=== PATIENT | female | born 1955 | race Caucasian/White ===

== ENCOUNTER → 2016-11-11 | Outpatient (CLI) | payer OTHER ==
[~2016-11-11] MED LIST: ALPR-411 PO; ASPI81TA28 PO; ATOR10TA82 PO; CARV6.252 PO; CLOP1TAB15 PO; DRGTP12 TD; FENO145T26 PO; FLUT1INH7 INH; HMLIS SQ; HYDR25TA4 PO; INSU1INJ33 SQ; IPRA1AER2 INH; LEVE500T13 PO; LISI-461 PO; NTRGSL/4 UT; OXGN; OXYC-164 PO; PANT40TA PO; TIZA2CAP PO; UMEC1INH INH; VNTHFA/IN INH; ZOLP10TA PO
--- NOTE | 2016-11-11 13:39 | DIAGNOSTIC IMAGING REPORT ---
PET/CT HISTORY: PULMONARY NODULE TECHNIQUE: PET/CT was performed from the base of the skull through the pelvis following the intravenous administration of 9.0 mCi of F18-FDG. Non-contrast CT imaging was performed over the same range without breath-hold for attenuation correction of PET images and anatomic correlation, but not for primary interpretation as it is not of standard diagnostic quality. CT DOSE: COMPARISON: Chest CT 11/11/2016. FINDINGS: HEAD AND NECK: There is no FDG-avid disease or significant lymphadenopathy in the imaged portions of the head and the neck. CHEST: There is a 2.5 x 2.1 cm lobulated nodule within the anterior segment of the left upper lobe demonstrating moderate FDG uptake with an SUV max of 5. There is a 1 cm groundglass nodule within the left lung apex and a 4 mm nodule within the left lung apex on image 63. These do not demonstrate abnormal FDG uptake. Left-sided pacemaker. No FDG avid or enlarged mediastinal or hilar lymph nodes. ABDOMEN/PELVIS: Below the diaphragm, tracer is distributed physiologically in the gastrointestinal and genitourinary tracts. There are few slightly prominent left obturator/external iliac lymph nodes which demonstrate mild FDG uptake with an SUV max of 2. These are borderline enlarged by CT criteria with the dominant lymph node measuring 1.8 x 0.7 cm. MUSCULOSKELETAL: There is no FDG-avid or destructive bone lesion. IMPRESSION: 1. A 2.5 x 2.1 cm FDG avid nodule within the left upper lobe. This is consistent with a primary bronchogenic malignancy. 2. A 1 cm groundglass nodule within the left upper lobe. This does not demonstrate abnormal FDG uptake but may be below the threshold for PET imaging. Regardless, the imaging appearance alone is highly suggestive of a malignancy. 3. A 4 mm pulmonary nodule within the left lung apex which is indeterminate. 4. A few slightly prominent left obturator/external iliac lymph nodes which demonstrate mild FDG uptake. These are nonspecific and could be reactive. These are unlikely to represent metastatic disease given the location. A 3-[address] follow up is recommended to ensure resolution. Electronically signed by: Bret Dixon M.D. 11/11/2016 1:37 PM Dictated Date/Time: 11/11/2016 1:22 PM
== END | disposition home or self-care (01) ==
LOC: C.PET 08:32
PROVIDERS: ATTEND Surgery
DX: R91.1 Solitary pulmonary nodule (principal)

== ENCOUNTER → 2016-11-11 | Outpatient (CLI) | payer OTHER ==
--- NOTE | 2016-11-11 13:25 | DIAGNOSTIC IMAGING REPORT ---
CT CHEST SUPERDIMENSIONAL WITHOUT CT DOSE: 622.94 mGy.cm CLINICAL HISTORY: Lung mass. TECHNIQUE: Axial images of the chest were obtained without IV contrast according to the superdimensional protocol. COMPARISON STUDY: Chest CT October 19, 2016 and PET/CT performed earlier today. FINDINGS: No enlarged axillary, mediastinal or hilar lymph nodes are present. A left subclavian pacemaker/AICD is in place. The heart is mildly enlarged. There is a trace pericardial effusion. Note is made of a lobulated 3.1 x 2 cm mass with endobronchial component which occludes the bronchus to the anterior segment of the left upper lobe. There is mild associated volume loss. In addition, there is a 1.2 cm groundglass opacity within left lung apex which is unchanged since prior exam of October 19, 2016. This is shown on image 30 of 276. There is an adjacent indeterminate 4 mm left upper lobe nodule shown image 30. No suspicious osseous lesions are present. Upper abdomen is unremarkable. IMPRESSION: 1. 3.1 x 2 cm irregular left upper lobe mass with endobronchial component which occludes the bronchus to the anterior segment of the left upper lobe. This is consistent with a neoplasm and could reflect a bronchogenic carcinoma or carcinoid. 2. 1.2 cm groundglass opacity within left lung apex. While indeterminate, this is suspicious for a low-grade neoplasm within the adenocarcinoma spectrum. 3. Indeterminate 4 mm left apical nodule. 4. No thoracic lymphadenopathy. Electronically signed by: Sb Cunningham M.D. 11/11/2016 1:23 PM Dictated Date/Time: 11/11/2016 12:11 PM
== END | disposition home or self-care (01) ==
LOC: C.CTS 11:13
PROVIDERS: ATTEND Surgery
DX: R91.8 Other nonspecific abnormal finding of lung field (principal)

== ENCOUNTER 2016-12-28 08:10 | Day surgery (SDC) | payer OTHER ==
[2016-11-03 10:52] VITALS: BMI 38.0
[~2016-12-28] VITALS: Ht 162.6 cm; Wt 100.0 kg
[~2016-12-28 08:10] MED LIST changes: +CEFAZOLIN 2000 MG/60 ML D5W IV SCH; -FENO145T26 PO; -INSU1INJ33 SQ; +LACTATED RINGER'S 1000ML 1,000 ML IV SCH; -NTRGSL/4 UT; -OXGN; -TIZA2CAP PO; -UMEC1INH INH; -ZOLP10TA PO
[2016-12-28] MEDS ORDERED: FENO145T26 PO (08:48)
[2016-12-28] MEDS ORDERED: NTRGSL/4 UT (08:49)
[2016-12-28] MEDS ORDERED: TIZA2CAP PO (08:50)
[2016-12-28] MEDS ORDERED: OXGN (08:50)
[2016-12-28] MEDS ORDERED: ZOLP10TA PO (08:51)
[2016-12-28] MEDS ORDERED: UMEC1INH INH (08:56)
[2016-12-28 08:59] VITALS: BP 175/84; PULSE 83; TEMP 36.5; O2SAT 98; Ht 162.6 cm; Wt 100.0 kg
[2016-12-28] MEDS ORDERED: PROPOFOL IV EMULSION 10 MG/ML 20 ML VIAL IV ONE (09:33)
[2016-12-28] MEDS ORDERED: SUCCINYLCHOLINE CHLORIDE 20 MG/ML 10 ML VIAL IV ONE (09:33)
[2016-12-28] MEDS ORDERED: FENTANYL CITRATE INJ 50 MCG/1 ML 2 ML VIAL ONE ×2 (09:33→10:48)
[2016-12-28] MEDS ORDERED: ROCURONIUM BROMIDE 10 MG/ML 5 ML VIAL ONE (09:33)
[2016-12-28] MEDS ORDERED: MIDAZOLAM HCL 1 MG/ML 2ML VIAL ONE (09:33)
[2016-12-28] MEDS ORDERED: LIDOCAINE HCL 2% 2 ML VIAL (20MG/ML) ONE (09:33)
[2016-12-28] MEDS ORDERED: ATROPINE SULFATE 0.1 MG/ML 5ML SYR IV PRN (11:15)
[2016-12-28] MEDS ORDERED: EpHEDrine SULFATE INJ 50 MG/ML AMP IV PRN (11:15)
--- NOTE | 2016-12-28 12:22 | History and Physical ---
History & Physical Date Dec 28, 2016. Chief Complaint A lump in my lung. History of Present Illness The patient is a 61 year old female who was found to have an asymptomatic hypermetabolic mass in her left upper lobe and a smaller ground glass opacity in the left upper lobe. Her lung function is surprising preserved. PET scan shows only the HAYDEE mass is hypermetabolic. She is here for a staging EBUS and aa Electromagnetic Navigational Bronchoscopy with biopsy. Additional History Hepatic Disease: No Endocrine Disorder: Yes Kidney Disease: No Hypertension: Yes Heart Disease: Probable, but has been cleared. Bleeding Tendencies: No Infectious Diseases: No Allergies Coded Allergies: Latex1 -Allergic Contact Dermititis (Verified Allergy, Mild, RASH, PRURITIS, 12/28/16) Morphine (Verified Allergy, Mild, N/V, 12/28/16) Uncoded Allergies: ADHESIVE TAPE (Allergy, Mild, RASH, 11/03/16) Home Medications Scheduled Aspirin (Aspirin Ec), 81 MG PO QAM Atorvastatin (Lipitor), 10 MG PO QAM Carvedilol (Coreg), 6.25 MG PO QAM Clopidogrel (Plavix), 75 MG PO QAM Fenofibrate (Tricor ), 1 TAB PO DAILY Fluticasone Furoate-Vilanterol (Breo Ellipta 200-25 Mcg/INH), 1 PUFF INH DAILY Home O2 Therapy (Oxygen), 2 LITERS NA HS Hydrochlorothiazide (Hctz), 25 MG PO QAM Insulin Human Lispro (Humalog Kwikpen), 0 SQ UD Levetiracetam (Keppra), 1 TAB PO BID Lisinopril (Zestril), 10 MG PO QAM Nitroglycerin (Nitrostat), 0.4 MG UT PRN Pantoprazole (Protonix), 40 MG PO QAM Zolpidem Tartrate (Ambien), 10 MG PO HS Scheduled PRN Albuterol Hfa (Ventolin Hfa), 2 PUFFS INH Q4H PRN for Shortness of Breath Alprazolam (Xanax), 0.5 MG PO BID PRN for Anxiety/Agitation Fentanyl (Fentanyl), 1 PATCH TD Q3D PRN for Pain Ipratropium-Albuterol (Combivent Respimat), 2 PUFFS INH QID PRN for Shortness of Breath Oxycodone Hcl (Oxycodone Hcl), 1 TAB PO QID PRN for Pain Umeclidinium Rueter (Incruse Ellipta), 1 PUFF INH prn PRN for Wheezing Physical Examination Skin: warm/dry, no rash Eyes: normal inspection, EOMI, sclerae normal ENT: + pertinent finding (Edentulous.) Head: normocephalic Neck: supple, no adenopathy, trachea midline Respiratory/Chest: no respiratory distress, + pertinent finding (No wheezing, but has decreased breath sounds.) Cardiovascular: regular rate, rhythm, no edema, no murmur Abdomen / GI: + pertinent finding (Obese.) Back: normal inspection Extremities: normal inspection, normal range of motion Neurologic/Psych: no motor/sensory deficits, alert, normal reflexes, oriented x 3 Diagnosis Left upper lobe mass X 2 in a smoker. Plan of Treatment Staging EBUS and ENB.
--- NOTE | 2016-12-28 14:58 | DIAGNOSTIC IMAGING REPORT ---
INTRAOPERATIVE RADIOGRAPHS CLINICAL HISTORY: Navigational bronchoscopy. FINDINGS: 2 spot fluoroscopic views of the left lung from a navigational bronchoscopy procedure are presented. The bronchoscope is identified on both images. A cardiac pacemaker is noted. IMPRESSION: Intraoperative images of the left chest from navigational bronchoscopy procedure. See operative report for detailed findings. Electronically signed by: Ricky Parekh M.D. 12/28/2016 2:56 PM Dictated Date/Time: 12/28/2016 2:55 PM
[2016-12-28] MEDS: FENTANYL CITRATE INJ 50 MCG/1 ML 2 ML VIAL IV PRN ×4 (15:10→15:25)
--- NOTE | 2016-12-28 15:14 | DIAGNOSTIC IMAGING REPORT ---
CHEST ONE VIEW PORTABLE CLINICAL HISTORY: s/p EBU / ENB COMPARISON STUDY: No previous studies for comparison. FINDINGS: No evidence pneumothorax. Parenchymal density left midlung similar. Permanent unipolar cardiac pacemaker/defibrillator IMPRESSION: No evidence pneumothorax post procedure Electronically signed by: Zain Webb M.D. 12/28/2016 3:12 PM Dictated Date/Time: 12/28/2016 3:11 PM
--- NOTE | 2016-12-28 15:47 | Anesthesiology Progress Note ---
Anesthesia Post Op Note Date & Time Dec 28, 2016 at 15:47 Vital Signs Pain Intensity: 2 Vital Signs Past 12 Hours Date Time Temp Pulse Resp B/P (MAP) Pulse Ox O2 Delivery O2 Flow Rate FiO2 12/28/16 15:42 89 15 98 12/28/16 15:42 88 15 12/28/16 15:41 144/77 12/28/16 15:37 89 23 12/28/16 15:37 88 23 97 12/28/16 15:36 147/86 12/28/16 15:32 91 19 96 12/28/16 15:32 92 19 12/28/16 15:31 146/80 12/28/16 15:27 92 17 96 12/28/16 15:27 92 17 12/28/16 15:26 159/86 12/28/16 15:22 94 16 96 12/28/16 15:22 94 16 12/28/16 15:21 162/99 12/28/16 15:17 92 14 12/28/16 15:17 91 14 100 12/28/16 15:16 172/68 12/28/16 15:12 93 17 100 12/28/16 15:12 93 17 12/28/16 15:11 167/78 12/28/16 15:10 92 14 100 12/28/16 15:10 92 14 12/28/16 15:06 158/89 12/28/16 15:05 87 21 12/28/16 15:05 87 21 100 12/28/16 15:01 152/78 12/28/16 15:00 89 17 99 12/28/16 15:00 88 17 12/28/16 14:59 88 23 99 12/28/16 14:59 88 23 12/28/16 14:56 139/86 12/28/16 14:54 90 25 12/28/16 14:54 90 25 97 12/28/16 14:51 144/76 12/28/16 14:49 98 23 12/28/16 14:49 98 23 97 12/28/16 14:46 122/75 12/28/16 14:44 94 21 12/28/16 14:44 36.3 94 16 151/77 93 Mask 10 12/28/16 14:44 94 21 151/77 94 12/28/16 08:59 36.5 83 20 175/84 (114) 98 Room Air Notes Mental Status: alert / awake / arousable, participated in evaluation Pt Amnestic to Procedure: Yes Nausea / Vomiting: adequately controlled Pain: adequately controlled Airway Patency, RR, SpO2: stable & adequate BP & HR: stable & adequate Hydration State: stable & adequate Anesthetic Complications: no major complications apparent
--- NOTE | 2016-12-28 16:08 | Discharge Instructions ---
Discharge Instructions Date of Service Dec 28, 2016. Visit Reason for Visit: Lung Mass, Iddm Discharge Discharge Diagnosis / Problem: Same Discharge Goals Goal(s): Learn about illness (I will see you next week to go over your illness. ) Activity Recommendations Activity Limitations: resume your previous activity Exercise/Sports Limitations: gradually increase as tolerated Anesthesia . Post Anesthesia Instructions: If you have had General Anesthesia or IV Sedation: * Do not drive today. * Resume driving when surgeon permits. * Do not make important decisions or sign legal documents today. * Call surgeon for: 1. Temperature elevations greater than 101 degrees F. 2. Uncontrollable pain. 3. Excessive bleeding. 4. Persistent nausea and vomiting. 5. Medication intolerance (nausea, vomiting or rash). * For nausea and vomiting use only clear liquids such as: tea, soda, bouillon until nausea subsides, then gradually increase diet as tolerated. * If you have any concerns or questions, call your surgeon's office. If physician is unavailable and it is an emergency, call 911 or go to the nearest emergency room. . Diet Recommendations Recommended Home Diet: resume previous diet Procedures Procedures Performed: Endobronchial Ultrasound; Navigational Bronchoscopy with Biopsies Pending Studies Studies pending at discharge: yes List of pending studies: Cytology and histology of lymph nodes and lung masses. Medical Emergencies . Who to Call and When: Medical Emergencies: If at any time you feel your situation is an emergency, please call 911 immediately. . Non-Emergent Contact Non-Emergency issues call your: Surgeon (Call the [facility] at [phone] Smith for any problems.) . . "Provider Documentation" section prepared by Brian Smith. .
[2016-12-28 16:10] VITALS: BP 169/77; PULSE 86; TEMP 36.5; O2SAT 98
[2016-12-28 16:40] VITALS: BP 140/77; PULSE 90; O2SAT 95
[2016-12-28 17:10] VITALS: BP 184/76; PULSE 95; TEMP 36.9; O2SAT 92
--- NOTE | 2016-12-28 18:53 | OPERATIVE REPORT ---
DATE OF OPERATION: 12/28/2016 PREOPERATIVE DIAGNOSIS: 1. Hypermetabolic mass, left upper lobe. 2. A second mass, left upper lobe. 3. History of cigarette smoking. POSTOPERATIVE DIAGNOSIS: Same. PROCEDURE: 1. Endobronchial ultrasound with biopsy for lymph node staging. 2. Electromagnetic navigational bronchoscopy washings of the superior lesion, which was a ground-glass lesion and then biopsies with brushes and needle and washings of the more inferior left upper lobe lesion. She tolerated it well. PROCEDURE: The patient was brought to the operating room and placed in supine position. General anesthesia was induced and endotracheal intubation was performed with a large endotracheal tube. The patient was given prophylactic antibiotics. After appropriate timeout had been called, the endobronchial ultrasound bronchoscope was placed. I did not see any endobronchial lesions in any of the airways going down to the smaller bronchi. I then started on the right side and biopsied the right level 11, right level 10, right level 4 nodes and the level 7 from the right and then the level 7 from the left and then did the left level 4 node, left level 10 nodes, left level 11 nodes. I biopsied these multiple times. There was minor bleeding from these. I then removed the endoscopic ultrasound and I scoped and placed a fiberoptic bronchoscope. I then was able to clean the airways much better. After registering the airways, I then placed the navigational probe up into the left upper lobe; however, I could not get to the most superior ground-glass opacity. I tried several times, but I did not think we could get any tissues with the brush or needle so I simply did washings. Decision was then turned towards the more solid, more proximal and inferior mass. Again, I did not have a good shot at this even though I entered through 7 different directions. I did do a needle biopsy as well as brushes. I did not do a forceps biopsy. I was not happy with what I saw on the radial ultrasound probe. There were some atypical cells noted on the needle. I did washings of this area too. There was really no bleeding when I finished. I slowly withdrew the fiberoptic bronchoscope. She tolerated it well. I attest to the content of the Intraoperative Record and any orders documented therein. Any exception s are noted below.
[2017-01-12] MEDS ORDERED: INSU1INJ33 SQ (10:17)
== END 2016-12-28 17:15 | disposition home or self-care (01) ==
LOC: C.ACU 08:10
PROVIDERS: ATTEND Surgery
DX: R91.8 Other nonspecific abnormal finding of lung field (principal); I12.9 Hypertensive chronic kidney disease with stage 1 through stage 4 chronic kidney disease, or unspecified chronic kidney disease; I25.2 Old myocardial infarction; N18.9 Chronic kidney disease, unspecified; J45.909 Unspecified asthma, uncomplicated; J44.9 Chronic obstructive pulmonary disease, unspecified; M19.90 Unspecified osteoarthritis, unspecified site; F17.200 Nicotine dependence, unspecified, uncomplicated; Z68.38 Body mass index [BMI] 38.0-38.9, adult; Z91.040 Latex allergy status; Z88.5 Allergy status to narcotic agent; Z90.49 Acquired absence of other specified parts of digestive tract; Z85.71 Personal history of Hodgkin lymphoma; Z79.4 Long term (current) use of insulin; Z79.02 Long term (current) use of antithrombotics/antiplatelets; E11.9 Type 2 diabetes mellitus without complications

== ENCOUNTER → 2017-01-04 | Outpatient (CLI) | payer OTHER ==
[~2017-01-04] MED LIST changes: -ATOR10TA82 PO; +ATOR10TA88 PO; -CEFAZOLIN 2000 MG/60 ML D5W IV SCH; +FENO145T26 PO; +INSU1INJ33 SQ; -LACTATED RINGER'S 1000ML 1,000 ML IV SCH; +NTRGSL/4 UT; +OXGN; +UMEC1INH INH; +ZOLP10TA PO
--- NOTE | 2017-01-04 09:22 | DIAGNOSTIC IMAGING REPORT ---
CHEST 2 VIEWS ROUTINE CLINICAL HISTORY: R91.8 Lung massR91.1 Lung [id number] COMPARISON STUDY: 12/28/2016 FINDINGS: The cardiac and mediastinal contours remain stable. There is a left-sided pacer/defibrillator present. There are resolving left midlung zone opacities. The right lung is clear. There are no pleural effusions. There is no failure.[ The patient's 3 cm left upper lobe mass is difficult to visualize on conventional radiographic imaging IMPRESSION: Resolving left midlung zone airspace opacities. Electronically signed by: Arian White M.D. 01/04/2017 9:20 AM Dictated Date/Time: 01/04/2017 9:18 AM
== END | disposition home or self-care (01) ==
LOC: C.RAD 08:54
PROVIDERS: ATTEND Surgery
DX: R91.8 Other nonspecific abnormal finding of lung field (principal); R91.1 Solitary pulmonary nodule

== ENCOUNTER 2017-01-20 05:23 | Inpatient (IN) | payer OTHER ==
[2017-01-12 10:17] VITALS: BMI 39.0
[2017-01-20] VITALS (10 sets, daily range): BP systolic 85–166; BP diastolic 42–93; PULSE 61–84; TEMP 36.4–37; O2SAT 98–100; Ht 162.6 cm; Wt 104.0 kg
[~2017-01-20] VITALS: Ht 162.6 cm; Wt 104.0 kg
[2017-01-20] MEDS ORDERED: LACTATED RINGER'S 1000ML 1,000 ML IV SCH (06:00)
[2017-01-20] MEDS ORDERED: SODIUM CHLORIDE 0.9% PF 50 ML VIAL ONE ×2 (06:59→12:43)
[2017-01-20] MEDS ORDERED: BUPIVACAINE LIPOSOME 1/3% 266 MG/20 ML VIAL INFIL ONE ×2 (07:00→12:43)
--- NOTE | 2017-01-20 07:01 | History & Physical Bridge Note ---
H&P Re-Evaluation Bridge Note: I have examined the patient, reviewed the History & Physical and in the interval since the performance of the History & Physical I have noted the following changes of clinical significance: No changes noted
[2017-01-20] MEDS ORDERED: PROPOFOL IV EMULSION 10 MG/ML 20 ML VIAL IV ONE (07:09)
[2017-01-20] MEDS ORDERED: LIDOCAINE HCL 2% 2 ML VIAL (20MG/ML) ONE (07:09)
[2017-01-20] MEDS ORDERED: FENTANYL CITRATE INJ 50 MCG/1 ML 2 ML VIAL ONE ×5 (07:09→15:54)
[2017-01-20] MEDS ORDERED: MIDAZOLAM HCL 1 MG/ML 2ML VIAL ONE (07:09)
[2017-01-20] MEDS ORDERED: CLINDAMYCIN PHOS 150 MG/ML 2 ML VIAL ONE (08:39)
[2017-01-20] MEDS ORDERED: PROMETHAZINE HCL INJ 6.25 MG in SODIUM CHLORIDE 0.9% 50ML 50 ML IV PRN (08:45)
[2017-01-20] MEDS ORDERED: ATROPINE SULFATE 0.1 MG/ML 5ML SYR IV PRN (08:45)
[2017-01-20] MEDS ORDERED: FENTANYL CITRATE INJ 50 MCG/1 ML 2 ML VIAL IV PRN (08:45)
[2017-01-20] MEDS ORDERED: EpHEDrine SULFATE INJ 50 MG/ML AMP IV PRN (08:45)
[2017-01-20] MEDS ORDERED: HYDROmorphone INJ 1 MG/ML SYR IV PRN (08:45)
[2017-01-20] MEDS ORDERED: ONDANSETRON INJ 2 MG/ML 2 ML VIAL IV PRN ×2 (08:45→15:15)
[2017-01-20] MEDS ORDERED: ONDANSETRON INJ 2 MG/ML 2 ML VIAL ONE (10:37)
[2017-01-20] MEDS ORDERED: PHENYLEPHRINE HCL INJ 10 MG/ML VIAL ONE ×2 (10:37→11:17)
[2017-01-20] MEDS ORDERED: ROCURONIUM BROMIDE 10 MG/ML 5 ML VIAL ONE ×2 (10:37→11:22)
[2017-01-20 13:35] LABS: HEMATOCRIT 35.7 % (37-47)
[2017-01-20] MEDS ORDERED: PROGEL PLEURAL AIR LEAK SEALANT 4ML TOP ONE (14:41)
[2017-01-20] MEDS ORDERED: GLYCOPYRROLATE INJ 0.2 MG/ML VIAL ONE (14:47)
[2017-01-20] MEDS ORDERED: NEOSTIGMINE METHYLSULFATE 5 MG/5 ML SYR ONE (14:47)
[2017-01-20] MEDS ORDERED: NITROGLYCERIN 0.4 MG SL PER TAB CHARGE UT PRN (15:15)
[2017-01-20] MEDS ORDERED: ALPRAZOLAM 0.5 MG TAB PO PRN (15:15)
--- NOTE | 2017-01-20 15:37 | DIAGNOSTIC IMAGING REPORT ---
CHEST ONE VIEW PORTABLE CLINICAL HISTORY: INCORRECT INSTRUMENT COUNT OR RM 11 COMPARISON STUDY: No previous studies for comparison. FINDINGS: A single right lateral decubitus view is provided for interpretation. There is a left-sided pneumothorax with a pleural separation of 2 cm.[ There is a left chest tube present. There is a left subclavian pacer/defibrillator present. No metallic instruments are visualized in the field. There is a triangular-shaped structure projected over the left lower chest. This is of uncertain etiology and needs to be correlated with overlying hardware. IMPRESSION: 1. No metallic instruments are visualized within the [id number] 2. Postsurgical changes involving the left hemithorax with a left-sided chest tube and 2 cm left-sided pneumothorax Electronically signed by: Arian White M.D. 01/20/2017 3:35 PM Dictated Date/Time: 01/20/2017 3:31 PM
--- NOTE | 2017-01-20 16:07 | DIAGNOSTIC IMAGING REPORT ---
CHEST ONE VIEW PORTABLE CLINICAL HISTORY: Left upper lobe resection COMPARISON STUDY: Intraoperative radiograph performed the same day FINDINGS: The heart is borderline enlarged. There are low lung volumes. There is a left-sided pacer/defibrillator present. There is a left-sided chest tube. There is blunting of the left lateral costophrenic angle. No significant pneumothorax is visualized. There is subsegmental atelectatic changes at the right lung base.[ IMPRESSION: Postsurgical change. No evidence of significant pneumothorax Electronically signed by: Arian White M.D. 01/20/2017 4:06 PM Dictated Date/Time: 01/20/2017 4:05 PM
--- NOTE | 2017-01-20 16:25 | [facility] Operative Report ---
Operative Report Date of Service Jan 20, 2017. Operative Report Operative report: Preoperative diagnosis: 2 masses left upper lobe. Posterior diagnosis: Squamous cell carcinoma more proximal lung lesion. Procedure: #1 robotic-assisted dissection the left upper lobe hilum #2 conversion to mini thoracotomy to complete left upper lobectomy and mediastinal lymph node dissection. Surgeon:Sarah Suazo. surgeon: Domo RAMOS Procedure: This 61-year-old female with a history of lymphoma also suffers from cardiomyopathy. She was found to have a mass in her medial left upper lobe and also a groundglass opacity in the apex of her left upper lobe. I performed an endobronchial ultrasound and biopsied multiple lymph node stations they were all negative. We did not have a diagnosis however the medial mass was hypermetabolic and certainly appeared to be a malignancy. After long discussion with the patient and her family we elected to proceed with resection. This was not an area where we could do a wedge resection. On 01/20/2017 the patient for Travis and underwent uncomplicated insertion of a double lumen tube. She was turned in the right lateral decubitus position. After all monitoring lines and catheters been placed and prophylactic antibiotics given, a timeout was called. She was then prepped and draped in the usual sterile fashion. 5 separate incisions were made at about the eighth interspace to accommodate a 5 mm port 38 mm ports and two 12 mm ports. The robot was undocked. It could be seen the patient did have much in the way of of adhesions. Unfortunately, she had no fissures at all. We retracted the lung anteriorly and I took down level X nodes after dissecting out the medial mediastinum. Came down upon the main pulmonary artery. She did have some adhesions between the pericardium and the medial aspect of the right upper and lower lobe. These were taken down it was difficult to dissect out the vein however we were able to do this identified the lingual vein and the superior pulmonary vein. I completed the mediastinal dissection around the upper hilum down to the medial aspect and dissected out multiple lymph nodes. Then came down to down the inferior pulmonary ligament took out a level VIII and 9 nodes. There are multiple level XI nodes removed. Patient was then turned posteriorly and a large superior branch was taken pulmonary artery with Endo GI stapler. It bifurcated soon after this. We then dissected out more medially and the apical anterior branch came out. It was difficult to dissect out the fissure as it was incomplete. I then went around medially and fired an Endo JEFF stapler across the superior pulmonary vein. I then fired an Endo JEFF stapler across the anterior fissure and then along the posterior fissure for a short distance on each fissure. However, it was difficult to dissect out the pulmonary artery. I then dissected out the bronchus to the upper lobe and fired stapler however we were fairly distal. Came upon the lingual artery and I inserted lingular artery and I fired an Endo JEFF stapler across this. This completed the fissure anteriorly however at this point, we did not progressed as quickly as I would've liked. The fissures were also very difficult despite inflating the lung. For this reason I elected to open the chest and finishes case open. I made and incision in about the fifth interspace anterior latissimus dorsi about 10 cm. A retractor was placed. I was then able to dissect out the remainder the fissure posteriorly and fired an Endo JEFF stapler across this to finally complete it. Identified the branch going to the superior segment of the lower lobe and care was taken to avoid injury to this. Attention was then turned towards the medial aspect of the remaining fissure and I completed this by firing another stapler and delivered the lobe off the table. Frozen section showed this to indeed be a squamous cell carcinoma in the medial lesion. I did discuss the factor that there was a groundglass opacity in the apex with Dr. Costa. Frozen section was required on this. There was some dysplasia although no dylan carcinoma of the bronchus. This reason I dissected this out further and took off another segment is as I had left this fairly long. I inked this margins and gave it to Dr. Costa and this was negative for carcinoma. Then used 266 mg of X Singleton reconstituted in 60 mL of normal saline to do a intercostal block intrathoracic leak from the second to 11th rib. Also to be noted that I undocked and removed all of the arms of the robot when I opened the chest. Irrigated out the chest really there was no air leak. The lung inflated nicely. A 24 Azeri chest tube was directed towards the apex. This was brought out through the anterior trocar incision and was sutured in place with a heavy silk suture. The muscle layers of all incisions were closed with 0 Vicryl. 2 pericostals 0 Maxon sutures used to reapproximate the ribs the anterior thoracotomy incision. 4 Monocryl was used to close all the incisions. She has multiple comorbidities was extubated in the room and transported to the postanesthesia care unit in stable condition. I attest to the content of the Intraoperative Record and any orders documented therein. Any exceptions are noted below.
--- NOTE | 2017-01-20 16:45 | Anesthesiology Progress Note ---
Anesthesia Post Op Note Date & Time Jan 20, 2017 at 16:42 Vital Signs Pain Intensity: 0 Vital Signs Past 12 Hours Date Time Temp Pulse Resp B/P (MAP) Pulse Ox O2 Delivery O2 Flow Rate FiO2 01/20/17 16:30 65 16 90/59 100 CPAP 88/43 01/20/17 16:20 66 16 91/56 100 CPAP 88/43 01/20/17 16:10 72 16 93/59 100 CPAP 68/35 01/20/17 16:00 70 16 104/62 100 CPAP 71/41 01/20/17 15:53 71 98 50.0 50 01/20/17 15:50 74 16 141/85 100 CPAP 108/55 01/20/17 15:42 36.0 84 16 139/64 100 CPAP 01/20/17 05:55 36.5 84 20 166/93 100 Room Air Notes Mental Status: alert / awake / arousable, participated in evaluation Pt Amnestic to Procedure: Yes Nausea / Vomiting: adequately controlled Pain: adequately controlled Airway Patency, RR, SpO2: stable & adequate BP & HR: stable & adequate Hydration State: stable & adequate Anesthetic Complications: no major complications apparent Pt will go to ICU on bipap. Health Science Specialist consulted and aware of patient's condition. VSS not on any pressor.
[2017-01-20] MEDS ORDERED: GLUCOSE 10 TABS/TUBE PO PRN (17:15)
[2017-01-20] MEDS ORDERED: GLUCOSE 40% GEL 15 GM TUBE PO PRN (17:15)
[2017-01-20] MEDS ORDERED: GLUCAGON FOR INJ 1 MG VIAL SQ PRN (17:15)
[2017-01-20] MEDS ORDERED: DEXTROSE 50% 50 ML SYR IV PRN (17:15)
[2017-01-20] MEDS: KETOROLAC TROMETHAMINE 15 MG/ML VIAL IV. SCH (17:54)
[2017-01-20] MEDS: SODIUM CHLORIDE 0.9% 1000ML 1,000 ML IV SCH (17:54)
[2017-01-20] MEDS: ACETAMINOPHEN IV 1,000 MG in EMPTY BAG 0 ML IV SCH (17:54)
[2017-01-20 17:58] LABS: HEMATOCRIT 35.5 % (37-47); MEAN CELL VOLUME 89.4 fL (80-100); MEAN CORPUSCULAR HGB CONC 32.4 g/dl (32-36); MEAN PLATELET VOLUME 10.1 fL (7.4-10.4); PLATELET COUNT 306 K/uL (130-400); RED BLOOD COUNT 3.97 M/uL (4.2-5.4); WHITE BLOOD COUNT 18.09 K/uL (4.8-10.8)
[2017-01-20] MEDS: CLINDAMYCIN IV 900 MG in DEXTROSE 5% 100ML 100 ML IV SCH (18:04)
--- NOTE | 2017-01-20 18:06 | Critical Care Consultation ---
Critical Care Consultation Date of Consultation: Jan 20, 2017. Attending Physician: Brian Smith MD Reason for Consultation: High risk post op course, multiple comorbidities, COPD History of Present Illness 61F with a PMHx of CAD s/p occluded stent, DM2, COPD presents status post open thoracotomy for resection of her left upper lobe and lymph node dissection. The patient presented to the ICU at approximately 17:00 on 01/20/2017. She was wearing a CPAP and was moderately sedated and unable to answer most questions. By the end of the exam she was more alert and responding to questions. Pt was asking for water and her plan of care was described (rest, eat when ready, take deep breaths). Pt nodded that she understood plan of care. Arterial line is in place. Pt also has a sims catheter. ROS: No chest pain, no SOB, no palpitations, no fevers, no chills, no nausea, no vomiting, no diarrhea, no dysuria, no rash. + Pt reports being thirsty. Social History Smoking Status: Current Every Day Smoker Allergies Coded Allergies: Latex1 -Allergic Contact Dermititis (Verified Allergy, Mild, RASH, PRURITIS, 01/20/17) Morphine (Verified Allergy, Mild, N/V, 01/20/17) Adhesives (Verified Allergy, Unknown, Tape - Rash, 01/20/17) Home Medications Scheduled Aspirin (Aspirin Ec), 81 MG PO QAM Atorvastatin (Lipitor), 10 MG PO QAM Carvedilol (Coreg), 6.25 MG PO QAM Clopidogrel (Plavix), 75 MG PO QAM Fenofibrate (Tricor ), 1 TAB PO DAILY Fluticasone Furoate-Vilanterol (Breo Ellipta 200-25 Mcg/INH), 1 PUFF INH DAILY Home O2 Therapy (Oxygen), 2 LITERS NA HS Hydrochlorothiazide (Hctz), 25 MG PO QAM Insulin Degludec (Tresiba Flextouch), 160 UNITS SQ HS Insulin Human Lispro (Humalog Kwikpen), 0 SQ UD Levetiracetam (Keppra), 1 TAB PO BID Lisinopril (Zestril), 10 MG PO QAM Nitroglycerin (Nitrostat), 0.4 MG UT PRN Pantoprazole (Protonix), 40 MG PO QAM Zolpidem Tartrate (Ambien), 10 MG PO HS Scheduled PRN Albuterol Hfa (Ventolin Hfa), 2 PUFFS INH Q4H PRN for Shortness of Breath Alprazolam (Xanax), 0.5 MG PO BID PRN for Anxiety/Agitation Fentanyl (Fentanyl), 1 PATCH TD Q3D PRN for Pain Ipratropium-Albuterol (Combivent Respimat), 2 PUFFS INH QID PRN for Shortness of Breath Oxycodone Hcl (Oxycodone Hcl), 1 TAB PO QID PRN for Pain Umeclidinium [place] (Incruse Ellipta), 1 PUFF INH prn PRN for Wheezing Current Inpatient Medications Current Inpatient Medications Medications (Trade) Dose Ordered Sig/Bailey Route Start Time Stop Time Status Last Admin Dose Admin Lactated Ringer's 1,000 ml @ 15 mls/hr Q24H IV 01/20/17 06:00 01/21/17 05:59 01/20/17 06:25 15 MLS/HR Alprazolam (Xanax Tab) 0.5 mg BID PRN PO 01/20/17 15:15 02/19/17 15:14 Aspirin (Ecotrin Tab) 81 mg QAM PO 01/21/17 09:00 02/20/17 08:59 Atorvastatin Calcium (Lipitor Tab) 10 mg QAM PO 01/21/17 09:00 02/20/17 08:59 Carvedilol (Coreg Tab) 6.25 mg QAM PO 01/21/17 09:00 02/20/17 08:59 Clopidogrel Bisulfate (plAVix TAB) 75 mg QAM PO 01/21/17 09:00 02/20/17 08:59 Fenofibrate (Tricor Tab) 145 mg DAILY PO 01/21/17 09:00 02/20/17 08:59 Levetiracetam (Keppra Tab) 500 mg BID PO 01/20/17 21:00 02/19/17 20:59 Lisinopril (Zestril Tab) 10 mg QAM PO 01/21/17 09:00 02/20/17 08:59 Nitroglycerin (Nitrostat Tab) 0.4 mg UD PRN UT 01/20/17 15:15 02/19/17 15:14 Pantoprazole Sodium (Protonix Tab) 40 mg QAM PO 01/21/17 09:00 02/20/17 08:59 Insulin Aspart (novoLOG ASPART) SLIDING SCALE G... ACHS SC 01/20/17 16:00 02/19/17 15:59 Enoxaparin Sodium (Lovenox Inj) 40 mg DAILY SQ 01/21/17 09:00 02/20/17 08:59 UNV Ondansetron HCl (Zofran Inj) 4 mg Q4H PRN IV 01/20/17 15:15 02/19/17 15:14 Docusate Sodium (coLACE CAP) 100 mg BID PO 01/20/17 21:00 02/19/17 20:59 Ketorolac Tromethamine (Toradol Inj) 15 mg Q8H IV. 01/20/17 18:00 01/22/17 10:01 Clindamycin Phosphate 900 mg/ Dextrose 106 ml @ 100 mls/hr Q6H IV 01/20/17 18:00 01/21/17 01:04 Metoclopramide HCl (Reglan Inj) 10 mg Q8 IV. 01/20/17 22:00 01/21/17 21:59 Hydromorphone HCl (Dilaudid Inj) 0.5 mg Q3H PRN IV 01/20/17 15:15 02/03/17 15:14 Acetaminophen 1000 mg/Empty Bag 100 ml @ 400 mls/hr Q8@0200,1000,1800 IV 01/20/17 18:00 02/19/17 17:59 Oxycodone HCl (Roxicodone Immediate Rel Tab) 5 mg Q6H PRN PO 01/20/17 15:15 02/03/17 15:14 Sodium Chloride 1,000 ml @ 75 mls/hr [id number] IV 01/20/17 17:00 02/19/17 16:59 Non-Formulary Medication (Insulin Degludec (Tresiba Flextouch)) 160 units HS SQ 01/20/17 21:00 02/19/17 20:59 UNV Glucose (Glucose 40% Gel) 15-30 GRAMS 15 GRAMS... UD PRN PO 01/20/17 17:15 8/18/17 17:14 Glucose (Glucose Chew Tab) 4-8 Tablets 4 Tabl... UD PRN PO 01/20/17 17:15 02/19/17 17:14 Dextrose (Dextrose 50% 50ML Syringe) 25-50ML OF 50% DW IV FOR... UD PRN IV 01/20/17 17:15 02/19/17 17:14 Glucagon (Glucagon Inj) 1 mg UD PRN SQ 01/20/17 17:15 02/19/17 17:14 Review of Systems Difficult to assess because pt is still experiencing some post operative sedation. Constitutional: No fever, No chills Physical Exam Date Time Temp Pulse Resp B/P (MAP) Pulse Ox O2 Delivery O2 Flow Rate FiO2 01/20/17 16:30 65 16 90/59 100 CPAP 88/43 01/20/17 16:20 66 16 91/56 100 CPAP 88/43 01/20/17 16:10 72 16 93/59 100 CPAP 68/35 01/20/17 16:00 70 16 104/62 100 CPAP 71/41 01/20/17 15:53 71 98 50.0 50 01/20/17 15:50 74 16 141/85 100 CPAP 108/55 01/20/17 15:42 36.0 84 16 139/64 100 CPAP 01/20/17 05:55 36.5 84 20 166/93 100 Room Air General Appearance: no apparent distress, obese Eyes: PERRLA, no discharge, EOMI Respiratory: other (diminished lung sounds anteriorly and posteriorly, no rhonchi appreciated, ) Cardiovasular: regular rate/rhythm, normal S1S2, no M/G/R, no murmur, no gallop , no rub Abdomen: non tender, normal bowel sounds, no rebound, no masses, no guarding, no organomegaly Upper Extremities: limited ROM (pt is moving her upper extremities spontaneously) Pulses: brachial (R) (2+), brachial (L) (2+) Neuro: alert, oriented x 3, other (Pt is sedated and resting comfortably in bed. ) Psychiatric: other (Unable to properly ascertain due to sedation, pt verbalized understanding of her plan of care, no abnormalities for her affect.) Laboratory Results Last 24 Hours Test 01/20/17 06:03 01/20/17 13:30 01/20/17 15:57 01/20/17 17:14 Bedside Glucose 198 mg/dl 227 mg/dl Hemoglobin 11.6 g/dL Hematocrit 35.7 % Assessment & Plan 61F with a PMHx of CAD s/p occluded stent, DM2, COPD presents status post open thoracotomy for resection of her left upper lobe and lymph node dissection. The patient presented to the ICU at approximately 17:00 on 01/20/2017. Neuro * Post operative sedation. Awake, alert and oriented x 3. Groggy. * Anxiety: * Continue Xanax 0.5mg BID PRN. * Continue Ambien 10mg PO QHS CV * CAD w stents: Pt denies chest pain. * ASA 81mg PO QAM. * Coreg 6.25mg QAM. * Plavix 75mg QAM. * HLD : * Lipitor 10mg PO QAM. * Fenofibrate 145mg PO QAM. * HTN: * pt has an arterial line for continuous BP monitoring. * Lisinopril 10mg PO QAM. * Seizure history * Keppra 500mg PO BID. Resp * s/p left upper lobectomy, 100% O2 sats on CPAP, ABG shows pH of 7.311, PCO2 of 45.1 and PO2 of 228 and bicarb of 22.7. * Albuterol INH Q4 PRN * Advair BID INH starting 01/21/17 AM. * Pt has a chest tube drain to gravity. GI/ * GI Proph: c/w Protonix 40mg PO daily. * : Pt has a sims catheter. * Diet: Progress diet as tolerated. * Constipation: Colace 100mg BID scheduled. Heme: * Preop HgB = 11.6, post op hemoglobin pending, continue to monitor * DVT Proph: * Lovenox 40mg SQ daily. * Coagulation panel pending. Endo: * Blood sugars around 200. Target blood sugars post op between 140 and 180. Glycemic control consult in place. Renal * Creatinine pending. * NSS 75mls/hr ID: * WBC Pending. Continue to monitor tomorrow. MSK: * Post op pain control: * Tylenol 1mg IV TID scheduled. FULL CODE Resident Physician Supervision Note: Dr. Esparza was resident physician during care of patient. I separately evaluated patient and did history and exam. I discussed the case with the resident and generally agree with the findings and plan. Patient post-operative lobectomy, hx of ischemic cardiomyopathy, COPD and renal insufficiency. Limited bedside ECHO revealed hyperdynamic function. tolerated additional fluid boluses. Given extend and length of surgery with recent RI ( aug 21) and cardiomyopathy at risk for reintubation I have personally spent 45 minutes of critical care time in the direct management of this patient. This is a life/limb threatening event. This includes time spent evaluating patient, direct bedside care, chart review, placing orders, interpretation of diagnostic studies, discussion with consultants, patient, and family members, as well as other required patient management activities. This time is exclusive of all separately billable procedures, and teaching time and separate from and in addition to any other critical care service time. Documented By: Brody Avila DO Resident Involvement: Resident Care Provided Care Provided: Adult [facility] Medicine
[2017-01-20 18:09] LABS: PROTHROMBIN TIME (PATIENT) 10.6 SECONDS (9.0-12.0)
[2017-01-20] MEDS: INSULIN ASPART 100 UNITS/ML 3 ML PEN SC SCH ×2 (18:12→21:27)
[2017-01-20] MEDS ORDERED: PNEUMOCOCCAL ADMINISTRATION CHARGE ONE (18:15)
[2017-01-20] MEDS ORDERED: PNEUMOCOCCAL POLYSACCHARIDES 25 MCG/0.5 ML VIAL/SYR IM. ONE (18:15)
[2017-01-20] MEDS ORDERED: ALBUTEROL 0.083% NEBU SOLN 3 ML VIAL INH PRN (18:15)
[2017-01-20 18:23] LABS: CREATININE 1.8 mg/dl (0.60-1.20)
[2017-01-20] MEDS ORDERED: PHARMACY GLYCEMIC MGMT CONSULT PRN (18:26)
[2017-01-20] MEDS ORDERED: INSULIN GLARGINE SOLOSTAR 100 UNITS/ML 3 ML PEN SC SCH (19:00)
--- NOTE | 2017-01-20 19:30 | Pharmacy Progress Note ---
Glycemic Control Intl Consult Date of Service Jan 20, 2017. Scope Glycemic Pharmacist consulted by Dr Curiel on 01/20/17 for glycemic control and to write orders per [facility] inpatient glycemic control protocol Objective Weight (Kilograms): 104.55 Accuchecks BSG (last 24hrs): Test 01/20/17 06:03 01/20/17 15:57 01/20/17 18:08 Bedside Glucose 198 mg/dl (70-90) 227 mg/dl (70-90) 313 mg/dl (70-90) Laboratory Data (last 24hrs) Test 01/20/17 17:39 Creatinine 1.80 mg/dl White Blood Count 18.09 K/uL Recent Pertinent Medications Outpatient Anti-diabetic Regimen: * Tresiba (insulin degludec) 160 units SQ HS * Humalog per scale PRN (~ 0-12 units depending on BSG) Risk Factors for Insulin Resistance: * Recent Surgery * Diet * Missed insulin dosing Assessment & Plan ASSESSMENT: * 61yo T2DM female with unknown degree of outpatient control. Per med rec, patient takes large doses of basal insulin and relatively small doses of correctional insulin. Most likely basal insulin is covering some prandial needs. * Ordered A1c with AM labs per protocol * Pt with persistent hyperglycemia pre/post-op secondary to not taking basal insulin the evening prior to surgery * Most likely, PO intake will be reduced as compared to outpatient * Insulin regimen will need re-distributed in 50%:50% basal:prandial regimen to prevent hypoglycemia * Pt outpatient basal insulin is Tresiba (insulin degludec) which is a longer acting basal insulin. This is a non-formulary medication. Will therapeutic interchange to Lantus (insulin glargine) to prevent long standing hypoglycemia with changing patient status. * ADA & AACE recommend a goal blood sugar range 140-180 mg/dl for the majority of critically ill & non-critically ill patients. However, more stringent targets may be selected in individual cases. Will continue more stringent goal range as ordered per provider based on age. PLAN FOR INPATIENT GLYCEMIC CONTROL: Change to weight based, high stress, 50:50 % basal:prandial insulin regimen. Titrate dosing based on BSG trends. * Basal insulin * Sub Tresiba for Lantus * Lantus 50 units SQ HS * May need to increase to BID dosing 7/20/17 depending on BSG trends since the glucose lowering effect of Lantus is shorter acting than tresiba. * Bolus insulin * NovoLog per scale ACHS or Q6hrs while NPO. Additional checks/coverage at 0000 & 0400 for sustained hyperglycemia and to cover elevated BSGs secondary to decreased outpatient basal insulin dose * Goal Range: Low 120 mg/dL - High 150 mg/dL * Correction Factor: 15 mg/dL/unit * Nutritional / Prandial insulin per carb ratio of 1 unit per 2 grams CHO consumed * A1c with AM labs * Please note that the plan above was derived based on current level of insulin resistance and hospital stress. These recommendations are appropriate for inpatient admission only. Plan of care upon discharge will need to be reassessed to avoid potential outpatient hypo/hyperglycemia. Thank you.
[2017-01-20] MEDS: OXYCODONE HCL IR 5 MG TAB (IMMEDIATE RELEASE) PO PRN (19:45)
[2017-01-20] MEDS ORDERED: ZOLPIDEM TARTRATE 10 MG TAB PO SCH (21:00)
[2017-01-20] MEDS ORDERED: DOCUSATE SODIUM 100 MG CAP PO SCH (21:00)
[2017-01-20] MEDS: LEVETIRACETAM 500 MG TAB PO SCH (21:20)
[2017-01-20] MEDS: METOCLOPRAMIDE HCL INJ 5 MG/ML 2 ML VIAL IV. SCH (21:32)
[2017-01-20] MEDS ORDERED: SODIUM CHLORIDE 0.9% 500ML 500 ML IV STA (23:28)
[2017-01-21] VITALS (28 sets, daily range): BP systolic 81–157; BP diastolic 39–101; PULSE 67–107; TEMP 36.4–37.1; O2SAT 76–100
[2017-01-21] MEDS: CLINDAMYCIN IV 900 MG in DEXTROSE 5% 100ML 100 ML IV SCH (00:09)
[2017-01-21] MEDS: INSULIN ASPART 100 UNITS/ML 3 ML PEN SC SCH ×6 (00:11→19:54)
[2017-01-21] MEDS: ACETAMINOPHEN IV 1,000 MG in EMPTY BAG 0 ML IV SCH (02:23)
[2017-01-21] MEDS: KETOROLAC TROMETHAMINE 15 MG/ML VIAL IV. SCH (02:23)
[2017-01-21] MEDS ORDERED: NURSING VERBAL MED ORDER ONE (04:15)
[2017-01-21] MEDS ORDERED: SODIUM CHLORIDE 0.9% 500ML 500 ML IV ONE (04:15)
[2017-01-21 05:43] LABS: BASO % 0.2 %; BASO ABS # 0.02 K/uL (0-0.2); COMPLETE YES; EOS % 0.8 %; IG% 0.2 %; LYMPH % 17.8 %; LYMPH ABS # 1.82 K/uL (1.2-3.4); MEAN CELL VOLUME 88.8 fL (80-100); MEAN CORPUSCULAR HEMOGLOBIN 28.4 pg (25-34); MEAN PLATELET VOLUME 9.7 fL (7.4-10.4); MONO % 4.6 %; NEUT % 76.4 %; PLATELET COUNT 281 K/uL (130-400); RED BLOOD COUNT 3.38 M/uL (4.2-5.4); WHITE BLOOD COUNT 10.21 K/uL (4.8-10.8)
[2017-01-21 06:18] LABS: BUN/CREATININE RATIO 13.2 (10-20); CALCIUM 7.6 mg/dl (8.5-10.1); CREATININE 2.4 mg/dl (0.60-1.20); MAGNESIUM 1.5 mg/dl (1.8-2.4); PHOSPHORUS 3.3 mg/dl (2.5-4.9); POTASSIUM 4.7 mmol/L (3.5-5.1)
[2017-01-21] MEDS: METOCLOPRAMIDE HCL INJ 5 MG/ML 2 ML VIAL IV. SCH ×2 (06:28→14:14)
[2017-01-21] MEDS: SODIUM CHLORIDE 0.9% 1000ML 1,000 ML IV SCH ×2 (06:29→19:24)
--- NOTE | 2017-01-21 06:44 | DIAGNOSTIC IMAGING REPORT ---
CHEST ONE VIEW PORTABLE CLINICAL HISTORY: Status post left upper lobe pulmonary resection COMPARISON STUDY: 01/20/2017 FINDINGS: The cardiac and mediastinal contours remain stable. There is a left subclavian pacer/defibrillator present. The left-sided chest tube is unchanged in position. There is a trace left apical pneumothorax.[ No pleural effusions are visualized. IMPRESSION: Postsurgical changes in the left. Trace left apical pneumothorax. Electronically signed by: Arian White M.D. 01/21/2017 6:43 AM Dictated Date/Time: 01/21/2017 6:42 AM
--- NOTE | 2017-01-21 07:08 | Clinical Documentation Query ---
CLINICAL DOCUMENTATION QUERY Dr. NICHOLS, In your clinical opinion is this patient being managed for: ( ) Acute kidney failure ( ) Other explanation of clinical findings (Please Explain) ( ) Unable to determine (Please Define) ( X ) Need to Discuss ( ) Not Agree The medical record reflects the following clinical findings, treatment, and risk factors. Clinical Indicators:61 yo female presenting with squamous cell lung cancer for surgical intervention. Post-operative Cr 1.8 which has trended up to Cr 2.4 in a 12 hour period. Nursing documentation reflects pt has had poor urine output (25-40 cc q 2 hrs x 6 hours) as well as hypotension (80-90's/40-50's). Treatment: 500 cc NSS IV fluid boluses x 2 plus continuous fluids, q 2 hour urine outputs, monitor PRP, CBC's Risk Factors: hypotension, EBL 300 cc, DM, COPD, CAD Please clarify and document your clinical opinion in the progress notes and discharge summary. Terms such as "probable", "suspected", "likely", "questionable", "possible", or "still to be ruled out" are acceptable. IF IN AGREEMENT, YOU MUST DOCUMENT ABOVE DIAGNOSTIC STATEMENT IN DAILY PROGRESS NOTES AND DISCHARGE SUMMARY. This document is not part of the patient's record. Thank You, Snow Elias RN [phone]
[2017-01-21 07:53] LABS: ESTIMATED AVERAGE GLUCOSE 189 mg/dl; HA1C FLAG Normal (Normal)
[2017-01-21] MEDS ORDERED: ACETAMINOPHEN 325 MG TAB PO SCH (08:00)
[2017-01-21] MEDS ORDERED: FENTANYL PATCH REMOVE & WASTE SCH ×2 (08:15→08:59)
[2017-01-21] MEDS ORDERED: FENTANYL 12 MCG/HR TDSY TD SCH ×2 (08:15→09:00)
--- NOTE | 2017-01-21 08:20 | Anesthesiology Progress Note ---
Anesthesia Post Op Note Date & Time Jan 21, 2017 at 08:19 Vital Signs Vital Signs Past 12 Hours Date Time Temp Pulse Resp B/P (MAP) Pulse Ox O2 Delivery O2 Flow Rate FiO2 01/21/17 06:02 36.5 70 16 97/49 (65) 100 Room Air 01/21/17 05:36 71 11 95/49 (64) 100 Room Air 01/21/17 04:40 69 86/46 (59) 98 Room Air 01/21/17 04:00 97 BiPAP 01/21/17 04:00 37.1 70 18 85/42 (56) 97 BiPAP 21 84/45 (58) 01/21/17 02:37 69 97 21 01/21/17 02:00 70 19 100/49 (66) 97 BiPAP 21 93/56 (68) 01/21/17 01:00 67 18 94/52 (66) 100 BiPAP 21 85/52 (63) 01/21/17 00:00 36.9 68 14 90/42 (58) 98 BiPAP 88/54 (65) 01/21/17 00:00 99 BiPAP 01/20/17 23:25 72 11 85/58 (67) 100 01/20/17 23:00 70 13 89/58 (68) 98 01/20/17 22:11 100 21 01/20/17 22:00 36.9 70 14 94/53 (67) 98 BiPAP 21 96/52 (67) 01/20/17 21:00 78 17 105/53 (70) 100 Room Air 110/56 (74) Notes Mental Status: alert / awake / arousable, participated in evaluation Pt Amnestic to Procedure: Yes Nausea / Vomiting: adequately controlled Pain: adequately controlled Airway Patency, RR, SpO2: stable & adequate BP & HR: stable & adequate Hydration State: stable & adequate Anesthetic Complications: no major complications apparent
[2017-01-21] MEDS ORDERED: ALBUMIN HUMAN 25% 12.5 GM/50 ML VIAL IV ONE (08:30)
[2017-01-21] MEDS ORDERED: LACTATED RINGER'S 1000ML 500 ML IV ONE (08:45)
[2017-01-21] MEDS: OXYCODONE HCL IR 5 MG TAB (IMMEDIATE RELEASE) PO PRN ×3 (08:57→20:00)
[2017-01-21] MEDS: MAGNESIUM OXIDE 400 MG TAB PO SCH ×3 (08:58→14:30)
[2017-01-21] MEDS: ALBUMIN HUMAN 25% 12.5 GM/50 ML VIAL IV SCH ×2 (08:59→09:43)
[2017-01-21] MEDS ORDERED: ASPIRIN 81 MG ECTAB PO SCH (09:00)
[2017-01-21] MEDS ORDERED: PANTOprazole SOD 40 MG TAB PO SCH (09:00)
[2017-01-21] MEDS ORDERED: CARVEDILOL 6.25 MG TAB PO SCH (09:00)
[2017-01-21] MEDS: LISINOPRIL 10 MG TAB PO SCH (09:00)
[2017-01-21] MEDS: ASPIRIN 81 MG CHEW PO SCH (09:13)
[2017-01-21] MEDS: DOCUSATE SODIUM 100 MG/10 ML UDC PO SCH ×2 (09:14→21:09)
[2017-01-21] MEDS: FLUTICASONE/SALMETEROL 250/50 (ADVAIR) 14 PUFF/1 INHALER INH SCH ×2 (09:14→21:10)
[2017-01-21] MEDS: ATORVASTATIN 10 MG TAB PO SCH (09:15)
[2017-01-21] MEDS: CLOPIDOGREL BISULFATE 75 MG TAB PO SCH (09:15)
[2017-01-21] MEDS: FENOFIBRATE 145 MG TAB PO SCH (09:16)
[2017-01-21] MEDS: LEVETIRACETAM 500 MG TAB PO SCH ×2 (09:16→21:09)
[2017-01-21] MEDS: LANSOPRAZOLE SOLUTAB 30 MG PO SCH (09:16)
[2017-01-21] MEDS: ENOXAPARIN 40 MG/0.4 ML SYR SQ SCH (09:17)
--- NOTE | 2017-01-21 09:18 | Critical Care Progress Note ---
Critical Care Progress Note Date of Service Jan 21, 2017. ICU Day ICU Day Number: [address] Avila Subjective The patient was seen and examined in chair at bedside. Pt has had approximately 110mL of urine output. Pt is more awake and alert. She has no acute complaints. Pt is drinking and eating appropriately. IVF are running, arterial line in place and sims in place. Patient is resting comfortably in in chair, oxygenating well. Denies having any pain. No acute complaints or overnight events. Plan of care was described to the patient and all questions were answered. ROS: No chest pain, no SOB, no dyspnea on exertion, no palpitations, no fevers, no chills, no nausea, no vomiting, no diarrhea, no dysuria, no rash. Objective Gen: No acute distress. Pt sitting at bedside. HEENT: Head - normocephalic and atraumatic. Pupils are equal, round, and reactive to light. Extraocular eye muscles are intact and sclera are anicteric. Neck: Supple; no JVD, nuchal rigidity, cervical lymphadenopathy, or auscultated bruits. Heart: Regular rate and rhythm. There is a normal S1 and S2 with no murmurs, clicks, or gallops appreciated. Lungs: Clear to auscultation bilaterally with no wheezes, rales, or rhonchi. Pt has a chest tube draining serosanguinous fluid on the left hand side. Abdomen: Soft, completely nontender, nondistended, with good bowel sounds. There are no palpable pulsatile masses or hepatosplenomegaly. There is no guarding, rigidity, or rebound noted. Extremities: No evidence of cyanosis, clubbing, or edema. There are easily palpable peripheral pulses. Neuro:The patient is awake and alert, oriented to day, time, and place. Muscle strength is 5/5 in all 4 extremities. The patient has equal speeder worker strength and equal pedal push and pull. There are no cerebellar signs. Current SOFA Score SOFA Score Response (Comments) Value Platelets (x10) > 150 0 Bilirubin (mg/dL) < 1.2 0 Yakov Coma Score 15 0 Level of Hypotension MAP less than 70 1 Creatinine (mg/dL) 2.0 - 3.4 2 Total 3 Assessment & Plan 61F with a PMHx of CAD, DM2, COPD presents status post open thoracotomy for resection of her left upper lobe and lymph node dissection. The patient presented to the ICU at approximately 17:00 on 01/20/2017. Pt doing well clinically. Concern for post op EDDIE. Neuro * Gen: Awake, alert and oriented x 3. * Anxiety: * Continue Xanax 0.5mg BID PRN. * Continue Ambien 10mg PO QHS CV * CAD w stents: Pt denies chest pain at present. * Continue ASA 81mg PO QAM. * Continue Coreg 6.25mg QAM. * Continue Plavix 75mg QAM. * HLD : * Continue Lipitor 10mg PO QAM. * Continue Fenofibrate 145mg PO QAM. * HTN: * Will removed arterial line this AM. * Continue Lisinopril 10mg PO QAM. * Seizure history * Continue Keppra 500mg PO BID. Resp * s/p left upper lobectomy, saturation >90% on room air. Pt has a chest tube drain to gravity draining serosanguineous fluid. * Albuterol INH Q4 PRN * Advair BID INH starting 01/21/17 AM. * Pt is on Breo Ellipta once a day and Incruse Ellipta PRN for wheezing - not on formulary, OK to use from home. * PT and OT ordered to get patient up and moving. Renal * EDDIE: Creatinine 2.4 today up from 1.8. * One 25g of 25% Albumin. * One 500mL bolus of LR * NSS at 75mls/hr * Recheck creatinine in the PM. GI/ * GI Proph: c/w Lansoprazole 30mg PO daily. * : Pt has a sims catheter. * Diet: Progress diet as tolerated. * Constipation: * Colace 100mg BID scheduled * Reglan IV 10mg TID. Heme: * Post op HgB is 9.6 from Preop HgB = 11.6. * DVT Proph: * Lovenox 40mg SQ daily. * Coagulation panel WNL. Endo: * Glucose: ranging between 100-200. Target between 140 and 180. Glycemic control consult in place. * Electrolytes: MgOx 400mg Q4H x 3 doses for Mg of 1.5 today. * K+ was 4.7 * Phosphorous was 3.3 * Continue to monitor. ID: * WBC 10.2. No indication of Abx. MSK: * Post op pain control: * Tylenol 650mg PO TID scheduled. * Fentanyl Patch 12.5mcg Q3days scheduled. * Roxicodone 5mg Q6H PO PRN pain. * PT and OT today. FULL CODE Resident Physician Supervision Note: Dr. Steen was resident physician during care of patient. I separately evaluated patient and did history and exam. I discussed the case with the resident and generally agree with the findings and plan. EDDIE, additional fluid and albumin for volume expansion. Maintain sims for strict I&O. Documented By: Brody Avila DO Consults & Procedures Consultants: No consults. Procedures: Arterial Line Removal - 01/21/17 Data Medications: Current Inpatient Medications Medications (Trade) Dose Ordered Sig/Bailey Route Start Time Stop Time Status Last Admin Dose Admin Alprazolam (Xanax Tab) 0.5 mg BID PRN PO 01/20/17 15:15 02/19/17 15:14 Aspirin (Ecotrin Tab) 81 mg QAM PO 01/21/17 09:00 02/20/17 08:59 Atorvastatin Calcium (Lipitor Tab) 10 mg QAM PO 01/21/17 09:00 02/20/17 08:59 Carvedilol (Coreg Tab) 6.25 mg QAM PO 01/21/17 09:00 02/20/17 08:59 Clopidogrel Bisulfate (plAVix TAB) 75 mg QAM PO 01/21/17 09:00 02/20/17 08:59 Fenofibrate (Tricor Tab) 145 mg DAILY PO 01/21/17 09:00 02/20/17 08:59 Levetiracetam (Keppra Tab) 500 mg BID PO 01/20/17 21:00 02/19/17 20:59 01/20/17 21:20 500 MG Lisinopril (Zestril Tab) 10 mg QAM PO 01/21/17 09:00 02/20/17 08:59 Nitroglycerin (Nitrostat Tab) 0.4 mg UD PRN UT 01/20/17 15:15 02/19/17 15:14 Pantoprazole Sodium (Protonix Tab) 40 mg QAM PO 01/21/17 09:00 02/20/17 08:59 Insulin Aspart (novoLOG ASPART) SLIDING SCALE G... ACHS SC 01/20/17 16:00 02/19/17 15:59 01/20/17 21:27 9 UNITS Enoxaparin Sodium (Lovenox Inj) 40 mg DAILY SQ 01/21/17 09:00 02/20/17 08:59 Ondansetron HCl (Zofran Inj) 4 mg Q4H PRN IV 01/20/17 15:15 02/19/17 15:14 Docusate Sodium (coLACE CAP) 100 mg BID PO 01/20/17 21:00 02/19/17 20:59 01/20/17 21:19 100 MG Metoclopramide HCl (Reglan Inj) 10 mg Q8 IV. 01/20/17 22:00 01/21/17 21:59 01/21/17 06:28 10 MG Hydromorphone HCl (Dilaudid Inj) 0.5 mg Q3H PRN IV 01/20/17 15:15 02/03/17 15:14 Oxycodone HCl (Roxicodone Immediate Rel Tab) 5 mg Q6H PRN PO 01/20/17 15:15 02/03/17 15:14 01/20/17 19:45 5 MG Sodium Chloride 1,000 ml @ 75 mls/hr [id number] IV 01/20/17 17:00 02/19/17 16:59 01/21/17 06:29 75 MLS/HR Insulin Glargine (Lantus Solostar Pen) 50 units HS SC 01/20/17 19:00 02/19/17 18:59 01/20/17 19:46 50 UNITS Glucose (Glucose 40% Gel) 15-30 GRAMS 15 GRAMS... UD PRN PO 01/20/17 17:15 02/19/17 17:14 Glucose (Glucose Chew Tab) 4-8 Tablets 4 Tabl... UD PRN PO 01/20/17 17:15 02/19/17 17:14 Dextrose (Dextrose 50% 50ML Syringe) 25-50ML OF 50% DW IV FOR... UD PRN IV 01/20/17 17:15 02/19/17 17:14 Glucagon (Glucagon Inj) 1 mg UD PRN SQ 01/20/17 17:15 02/19/17 17:14 Miscellaneous Information (Consult Glycemic Management Pharmacy) 1 ea UD PRN N/A 01/20/17 18:26 02/19/17 18:25 Albuterol Sulfate (Ventolin 0.083% 2.5MG/3ML Neb) 2.5 mg Q6R PRN INH 01/20/17 18:15 02/19/17 18:14 Salmeterol Xinafoate/ Fluticasone (Advair Diskus 250/50 Inh) 1 puff BID INH 01/21/17 09:00 02/20/17 08:59 Magnesium Oxide (Mag-Ox Tab) 400 mg Q4H PO 01/21/17 06:30 01/21/17 14:31 Acetaminophen (Tylenol Tab) 650 mg Q6H PO 01/21/17 08:00 02/20/17 07:59 Vital Signs: Date Time Temp Pulse Resp B/P (MAP) Pulse Ox O2 Delivery O2 Flow Rate FiO2 01/21/17 06:02 36.5 70 16 97/49 (65) 100 Room Air 01/21/17 05:36 71 11 95/49 (64) 100 Room Air 01/21/17 04:40 69 86/46 (59) 98 Room Air 01/21/17 04:00 97 BiPAP 01/21/17 04:00 37.1 70 18 85/42 (56) 97 BiPAP 21 84/45 (58) 01/21/17 02:37 69 97 21 01/21/17 02:00 70 19 100/49 (66) 97 BiPAP 21 93/56 (68) 01/21/17 01:00 67 18 94/52 (66) 100 BiPAP 21 85/52 (63) 01/21/17 00:00 36.9 68 14 90/42 (58) 98 BiPAP 88/54 (65) 01/21/17 00:00 99 BiPAP 01/20/17 23:25 72 11 85/58 (67) 100 01/20/17 23:00 70 13 89/58 (68) 98 01/20/17 22:11 100 21 01/20/17 22:00 36.9 70 14 94/53 (67) 98 BiPAP 21 96/52 (67) 01/20/17 21:00 78 17 105/53 (70) 100 Room Air 110/56 (74) 01/20/17 20:00 37.0 71 17 107/55 (72) 100 Room Air 98/59 (72) 01/20/17 20:00 100 Room Air 01/20/17 19:00 63 17 91/42 (58) 100 BiPAP 30 97/62 (74) 01/20/17 18:00 36.4 61 18 111/49 (69) 100 BiPAP 30 117/57 (77) 01/20/17 18:00 36.4 61 18 111/49 (69) 100 BiPAP 30 117/57 (77) 01/20/17 16:30 65 16 90/59 100 CPAP 88/43 01/20/17 16:20 66 16 91/56 100 CPAP 88/43 01/20/17 16:10 72 16 93/59 100 CPAP 68/35 01/20/17 16:00 70 16 104/62 100 CPAP 71/41 01/20/17 15:53 71 98 50.0 50 01/20/17 15:50 74 16 141/85 100 CPAP 108/55 01/20/17 15:42 36.0 84 16 139/64 100 CPAP Laboratory Results: Last 24 Hours Test 01/20/17 13:30 01/20/17 15:57 01/20/17 17:39 01/20/17 18:08 Hemoglobin 11.6 g/dL 11.5 g/dL Hematocrit 35.7 % 35.5 % Bedside Glucose 227 mg/dl 313 mg/dl White Blood Count 18.09 K/uL Red Blood Count 3.97 M/uL Mean Corpuscular Volume 89.4 fL Mean Corpuscular Hemoglobin 29.0 pg Mean Corpuscular Hemoglobin Concent 32.4 g/dl RDW Standard Deviation 39.5 fL RDW Coefficient of Variation 12.2 % Platelet Count 306 K/uL Mean Platelet Volume 10.1 fL Prothrombin Time 10.6 SECONDS Prothromb Time International Ratio 1.0 Activated Partial Thromboplast Time 27.1 SECONDS Partial Thromboplastin Ratio 1.0 Creatinine 1.80 mg/dl Est Creatinine Clear Calc Drug Dose 39.7 ml/min Estimated GFR () 35.1 Estimated GFR (Non- 30.3 Test 01/20/17 21:16 01/21/17 00:08 01/21/17 03:44 01/21/17 05:31 Bedside Glucose 277 mg/dl 236 mg/dl 147 mg/dl White Blood Count 10.21 K/uL Red Blood Count 3.38 M/uL Hemoglobin 9.6 g/dL Hematocrit 30.0 % Mean Corpuscular Volume 88.8 fL Mean Corpuscular Hemoglobin 28.4 pg Mean Corpuscular Hemoglobin Concent 32.0 g/dl Platelet Count 281 K/uL Mean Platelet Volume 9.7 fL Neutrophils (%) (Auto) 76.4 % Lymphocytes (%) (Auto) 17.8 % Monocytes (%) (Auto) 4.6 % Eosinophils (%) (Auto) 0.8 % Basophils (%) (Auto) 0.2 % Neutrophils # (Auto) 7.80 K/uL Lymphocytes # (Auto) 1.82 K/uL Monocytes # (Auto) 0.47 K/uL Eosinophils # (Auto) 0.08 K/uL Basophils # (Auto) 0.02 K/uL RDW Standard Deviation 39.9 fL RDW Coefficient of Variation 12.4 % Immature Granulocyte % (Auto) 0.2 % Immature Granulocyte # (Auto) 0.02 K/uL Sodium Level 139 mmol/L Potassium Level 4.7 mmol/L Chloride Level 109 mmol/L Carbon Dioxide Level 23 mmol/L Anion Gap 7.0 mmol/L Blood Urea Nitrogen 32 mg/dl Creatinine 2.40 mg/dl Est Creatinine Clear Calc Drug Dose 29.7 ml/min Estimated GFR () 24.8 Estimated GFR (Non- 21.4 BUN/Creatinine Ratio 13.2 Random Glucose 102 mg/dl Estimated Average Glucose 189 mg/dl Hemoglobin A1c 8.2 % Calcium Level 7.6 mg/dl Phosphorus Level 3.3 mg/dl Magnesium Level 1.5 mg/dl Test 01/21/17 06:31 01/21/17 06:33 Ionized Calcium 1.10 mmol/l Bedside Glucose 102 mg/dl Resident Involvement: Resident Care Provided Care Provided: Adult Hospital Medicine
[2017-01-21] MEDS: ACETAMINOPHEN SOLN 650MG/20.3 ML UDC PO SCH ×3 (09:45→21:09)
--- NOTE | 2017-01-21 11:19 | Pharmacy Progress Note ---
Glycemic Control Progress Note Date of Service Jan 21, 2017. Scope Glycemic Pharmacist consulted for glycemic control to write orders per [facility] inpatient glycemic control protocol. Objective Accuchecks BSG (last 24hrs): Test 01/20/17 15:57 01/20/17 18:08 01/20/17 21:16 01/21/17 00:08 Bedside Glucose 227 mg/dl (70-90) 313 mg/dl (70-90) 277 mg/dl (70-90) 236 mg/dl (70-90) Test 01/21/17 03:44 01/21/17 05:31 01/21/17 06:33 Bedside Glucose 147 mg/dl (70-90) 102 mg/dl (70-90) Random Glucose 102 mg/dl (70-99) HbA1c: Test 01/21/17 05:31 Hemoglobin A1c 8.2 % (4.5-5.6) H Recent Pertinent Medications The patient is currently receiving: * Basal insulin: * Lantus 50 units every 24 hours (dosed at bedtime) * Bolus Insulin: * NovoLog SQ ACHS - Goal Range: Low 120 mg/dL - High 160 mg/dL - Correction Factor: 15 mg/dL/unit - Carb ratio of 1 unit per 5 grams CHO consumed Outpatient Anti-Diabetic Meds * Basal insulin: * Tresiba (insulin degludec) 160 units SQ HS * Bolus insulin: * Humalog per scale PRN (~ 0-12 units depending on BSG) Assessment & Plan ASSESSMENT: * See progress note from 01/20/17 for more background info, in short: * Pt receiving SQ basal bolus insulin regimen for hyperglycemia secondary to baseline DM (outpatient regimen on hold), stress, and recent surgery * Patient is currently receiving an average of 70 units of insulin per day * 50 units of basal insulin * 20 units of prandial/correctional insulin * BSGs ranging 102-313 mg/dl over the past 24hrs * Changes needed to insulin regimen: * AM Fasting BSG = 102 mg/dl. This is just below goal range for this patient based on inpatient targets and co-morbidities. - Basal insulin needs to be decreased slightly (reduce by ~20%) * Post-prandial BSGs are in range - No changes needed to CF/CR - Will increase goal range to 140-180mg/dL for ICU patient status per ADA recommendations * Total daily dose ~70 units. - Attempt to redistribute regimen toward 50:50 basal:prandial to prevent hypo/hyperglycemia PLAN FOR INPATIENT GLYCEMIC CONTROL: * Basal insulin: * Lantus 40 units every 24 hours (dosed at bedtime) * Bolus Insulin: * NovoLog SQ ACHS - Goal Range: Low 140 mg/dL - High 180 mg/dL - Correction Factor: 15 mg/dL/unit - Carb ratio of 1 unit per 5 grams CHO consumed * A1c - added to discharge instructions RECOMMENDATIONS FOR DISCHARGE: * Ms. Guadalupe's A1c is 8.2% which may be slightly elevated for her age/ comorbidities, however I hesitate to make many changes to her home regimen at this time. I would recommend continuing home regimen at discharge with follow up with outpatient provider for optimal dose titration. * Please note that the plan above was derived based on current level of insulin resistance and hospital stress. These recommendations are appropriate for inpatient admission only. Plan of care upon discharge will need to be reassessed to avoid potential outpatient hypo/hyperglycemia. Thank you.
[2017-01-21 12:29] LABS: ISTAT ARTERIAL BLOOD GAS HCO3 23 meq/L (19-24); ISTAT ARTERIAL BLOOD GAS PCO2 44 mmHg (35-46); ISTAT ARTERIAL BLOOD GAS PO2 227 mmHg (80-95); ISTAT ARTERIAL BLOOD GAS pH 7.32 (7.35-7.45); ISTAT CARBON DIOXIDE 24 mEq/l (24-31); ISTAT DELIVERY SYSTEM Ventilator; ISTAT SITE Art Line; Spont RATE 16; Spont VE 6.2; Spont Vt 305
[2017-01-21 14:04] LABS: BUN/CREATININE RATIO 13.4 (10-20); CALCIUM 7.9 mg/dl (8.5-10.1); CREATININE 2.4 mg/dl (0.60-1.20); POTASSIUM 4.4 mmol/L (3.5-5.1)
--- NOTE | 2017-01-21 14:26 | Progress Note ---
Progress Note Date of Service Jan 21, 2017. Progress Note Thoracic surgery progress note: Mrs. Guadalupe was seen in the ICU today. She is one day status post a robotic- assisted thoracoscopic surgery and small thoracotomy for left upper lobectomy and mediastinal lymph node dissection. She's done quite well. She's on room air. She sitting up eating breakfast. She doesn't have much of an air leak. She's draining very little fluid. My only concern about Sangeetha Guadalupe is the fact that her pressures been a little low when she's required some fluid resuscitation and the fact that her renal insufficiency has worsened. Her preoperative creatinine was 1.8. It's 2.4 this morning and her urine output is been a bit low however the course the day with fluid she is now picked up quite nicely and her urine is nice and clear. I discussed this in detail with Dr. Brody Avila. Her x-ray shows full expansion of the lung with no pneumothorax or no pleural effusion. She is coughing well. Her pain control is been excellent. Assessment/plan: #1 postop day #1 status post robot-assisted thoracoscopic resection of left upper lobe for a non-small cell lung carcinoma area and Acute exacerbation of chronic renal insufficiency We are to keep her in the ICU overnight to monitor her blood pressure and her urine output. The pain would have things look I may let her go home tomorrow afternoon or more likely Wednesday. I discussed this with the patient and her daughter via telephone.
[2017-01-21] MEDS: HYDROmorphone INJ 0.5 MG/0.5 ML SYR IV PRN ×2 (15:21→23:48)
[2017-01-21] MEDS: CHECK FENTANYL PATCH PLACEMENT SCH (16:00)
[2017-01-21] MEDS ORDERED: CHECK FENTANYL PATCH PLACEMENT SCH (16:00)
[2017-01-21] MEDS: INSULIN GLARGINE SOLOSTAR 100 UNITS/ML 3 ML PEN SC SCH (21:14)
[2017-01-22] VITALS (10 sets, daily range): BP systolic 96–139; BP diastolic 53–82; PULSE 83–101; TEMP 36.5–37.6; O2SAT 94–100
[2017-01-22] MEDS: CHECK FENTANYL PATCH PLACEMENT SCH ×3 (00:24→15:24)
[2017-01-22] MEDS: HYDROmorphone INJ 0.5 MG/0.5 ML SYR IV PRN (03:39)
[2017-01-22] MEDS: ACETAMINOPHEN SOLN 650MG/20.3 ML UDC PO SCH ×4 (04:15→21:52)
[2017-01-22 05:40] LABS: MEAN CORPUSCULAR HEMOGLOBIN 28.9 pg (25-34); MEAN CORPUSCULAR HGB CONC 32.1 g/dl (32-36); MEAN PLATELET VOLUME 10.2 fL (7.4-10.4); PLATELET COUNT 235 K/uL (130-400); RED BLOOD COUNT 3.11 M/uL (4.2-5.4); WHITE BLOOD COUNT 8.84 K/uL (4.8-10.8)
[2017-01-22] MEDS: OXYCODONE HCL IR 5 MG TAB (IMMEDIATE RELEASE) PO PRN ×2 (05:43→20:00)
[2017-01-22 06:05] LABS: BUN/CREATININE RATIO 12.6 (10-20); CALCIUM 8.2 mg/dl (8.5-10.1); CREATININE 1.9 mg/dl (0.60-1.20); MAGNESIUM 1.5 mg/dl (1.8-2.4); POTASSIUM 4.8 mmol/L (3.5-5.1)
[2017-01-22 06:10] LABS: PHOSPHORUS 2.5 mg/dl (2.5-4.9)
--- NOTE | 2017-01-22 07:19 | Critical Care Progress Note ---
Critical Care Progress Note Date of Service Jan 22, 2017. ICU Day ICU Day Number: [address] Avila Subjective Little more pain today, otherwise doing well. Objective Gen: No acute distress. Pt sitting at bedside. HEENT: Head - normocephalic and atraumatic. Pupils are equal, round, and reactive to light. Extraocular eye muscles are intact and sclera are anicteric. Neck: Supple; no JVD, nuchal rigidity, cervical lymphadenopathy, or auscultated bruits. Heart: Regular rate and rhythm. There is a normal S1 and S2 with no murmurs, clicks, or gallops appreciated. Lungs: Clear to auscultation bilaterally with no wheezes, rales, or rhonchi. Pt has a chest tube draining serosanguinous fluid on the left hand side, grade 1 air leak. Abdomen: Soft, completely nontender, nondistended, with good bowel sounds. There are no palpable pulsatile masses or hepatosplenomegaly. There is no guarding, rigidity, or rebound noted. Extremities: No evidence of cyanosis, clubbing, or edema. There are easily palpable peripheral pulses. Neuro:The patient is awake and alert, oriented to day, time, and place. Muscle strength is 5/5 in all 4 extremities. The patient has equal supervisory training specialist strength and equal pedal push and pull. There are no cerebellar signs. Current SOFA Score SOFA Score Response (Comments) Value Platelets (x10) > 150 0 Bilirubin (mg/dL) < 1.2 0 Kila Coma Score 15 0 Level of Hypotension No Hypotension 0 Creatinine (mg/dL) 1.2 - 1.9 1 Total 1 Previous SOFA Scores 3 01/20/17 Assessment & Plan Neuro * Gen: Awake, alert and oriented x 3. * Anxiety: * Continue Xanax 0.5mg BID PRN. * Continue Ambien 10mg PO QHS CV * CAD w stents: Pt denies chest pain at present. * Continue ASA 81mg PO QAM. * Increased to Coreg 12.5mg QAM secondary to tachycardia * Continue Plavix 75mg QAM. * HLD : * Continue Lipitor 10mg PO QAM. * Continue Fenofibrate 145mg PO QAM. * HTN: * Continue Lisinopril 10mg PO QAM. * Seizure history * Continue Keppra 500mg PO BID. Resp * s/p left upper lobectomy, saturation >90% on room air. Pt has a chest tube drain per Thoracic surgery. Albuterol INH Q4 PRN * Advair BID INH starting 01/21/17 AM. * Pt is on Breo Ellipta once a day and Incruse Ellipta PRN for wheezing - not on formulary, OK to use from home. * PT and OT ordered to get patient up and moving. Renal * EDDIE: resolved, 1.9 near baseline. * D/C additional IVF, sims out. GI/ * GI Proph: c/w Lansoprazole 30mg PO daily. * : d/c sims * Diet: Progress diet as tolerated. * Constipation: * Colace 100mg BID scheduled * Reglan IV 10mg TID. Heme: * Post op HgB is 9.0 from Preop HgB = 11.6. * DVT Proph: * Lovenox 40mg SQ daily. * Coagulation panel WNL. Endo: * Glucose: ranging between 100-313. Target between 140 and 180. Glycemic control consult in place. * Electrolytes: Mgsulfate 1 gramx1 for Mg of 1.5 today. * K+ was 4.8 * Phosphorous was 2.5 * Continue to monitor. ID: * WBC 8.8. No indication of Abx. MSK: * Post op pain control: * Tylenol 650mg PO TID scheduled. * Fentanyl Patch 12.5mcg Q3days scheduled. * Roxicodone 5mg Q6H PO PRN pain. * PT and OT today. Stable for down grade today. Consults & Procedures Consultants: No consults. Procedures: Arterial Line Removal - 01/21/17 Data Medications: Current Inpatient Medications Medications (Trade) Dose Ordered Sig/Bailey Route Start Time Stop Time Status Last Admin Dose Admin Alprazolam (Xanax Tab) 0.5 mg BID PRN PO 01/20/17 15:15 02/19/17 15:14 Atorvastatin Calcium (Lipitor Tab) 10 mg QAM PO 01/21/17 09:00 02/20/17 08:59 01/21/17 09:15 10 MG Carvedilol (Coreg Tab) 6.25 mg QAM PO 01/21/17 09:00 02/20/17 08:59 Clopidogrel Bisulfate (plAVix TAB) 75 mg QAM PO 01/21/17 09:00 02/20/17 08:59 01/21/17 09:15 75 MG Fenofibrate (Tricor Tab) 145 mg DAILY PO 01/21/17 09:00 02/20/17 08:59 01/21/17 09:16 145 MG Levetiracetam (Keppra Tab) 500 mg BID PO 01/20/17 21:00 02/19/17 20:59 01/21/17 21:09 500 MG Lisinopril (Zestril Tab) 10 mg QAM PO 01/21/17 09:00 02/20/17 08:59 Nitroglycerin (Nitrostat Tab) 0.4 mg UD PRN UT 01/20/17 15:15 02/19/17 15:14 Insulin Aspart (novoLOG ASPART) SLIDING SCALE G... ACHS SC 01/20/17 16:00 02/19/17 15:59 01/21/17 16:50 4 UNITS Enoxaparin Sodium (Lovenox Inj) 40 mg DAILY SQ 01/21/17 09:00 02/20/17 08:59 01/21/17 09:17 40 MG Ondansetron HCl (Zofran Inj) 4 mg Q4H PRN IV 01/20/17 15:15 02/19/17 15:14 Hydromorphone HCl (Dilaudid Inj) 0.5 mg Q3H PRN IV 01/20/17 15:15 02/03/17 15:14 01/22/17 03:39 0.5 MG Oxycodone HCl (Roxicodone Immediate Rel Tab) 5 mg Q6H PRN PO 01/20/17 15:15 02/03/17 15:14 01/22/17 05:43 5 MG Sodium Chloride 1,000 ml @ 75 mls/hr [id number] IV 01/20/17 17:00 02/19/17 16:59 01/21/17 19:24 75 MLS/HR Glucose (Glucose 40% Gel) 15-30 GRAMS 15 GRAMS... UD PRN PO 01/20/17 17:15 02/19/17 17:14 Glucose (Glucose Chew Tab) 4-8 Tablets 4 Tabl... UD PRN PO 01/20/17 17:15 02/19/17 17:14 Dextrose (Dextrose 50% 50ML Syringe) 25-50ML OF 50% DW IV FOR... UD PRN IV 01/20/17 17:15 02/19/17 17:14 Glucagon (Glucagon Inj) 1 mg UD PRN SQ 01/20/17 17:15 02/19/17 17:14 Miscellaneous Information (Consult Glycemic Management Pharmacy) 1 ea UD PRN N/A 01/20/17 18:26 02/19/17 18:25 Albuterol Sulfate (Ventolin 0.083% 2.5MG/3ML Neb) 2.5 mg Q6R PRN INH 01/20/17 18:15 02/19/17 18:14 Salmeterol Xinafoate/ Fluticasone (Advair Diskus 250/50 Inh) 1 puff BID INH 01/21/17 09:00 02/20/17 08:59 01/21/17 21:10 1 PUFF Fentanyl (Duragesic Patch) 12 mcg Q3D@0900 TD 01/21/17 09:00 02/04/17 08:59 01/21/17 09:17 12 MCG Miscellaneous (Fentanyl Patch Remove & Waste) 1 ea Q3D@0859 N/A 01/21/17 08:59 02/20/17 08:58 01/21/17 09:12 1 EA Miscellaneous Information (Check Fentanyl Patch Placement) 1 ea QS N/A 01/21/17 16:00 02/20/17 15:59 01/22/17 00:24 1 EA Aspirin (Aspirin Chew) 81 mg QAM PO 01/21/17 09:00 02/20/17 08:59 01/21/17 09:13 81 MG Acetaminophen (Tylenol Soln) 650 mg Q6H PO 01/21/17 10:00 02/20/17 09:59 01/22/17 04:15 650 MG Docusate Sodium (coLACE SYRUP) 100 mg BID PO 01/21/17 09:00 02/20/17 08:59 01/21/17 21:09 100 MG Lansoprazole (Prevacid Solutab) 30 mg QAM PO 01/21/17 09:00 02/20/17 08:59 01/21/17 09:16 30 MG Miscellaneous Information (Order Awaiting Action) 1 ea QS N/A 01/21/17 16:00 02/20/17 15:59 Miscellaneous Information (Order Awaiting Action) 1 ea QS N/A 01/21/17 16:00 02/20/17 15:59 Insulin Glargine (Lantus Solostar Pen) SEE PROTOCOL HS SC 01/21/17 21:00 02/20/17 20:59 01/21/17 21:14 40 UNITS Magnesium Oxide (Mag-Ox Tab) 400 mg Q4H PO 01/22/17 06:30 01/22/17 14:31 Vital Signs: Date Time Temp Pulse Resp B/P (MAP) Pulse Ox O2 Delivery O2 Flow Rate FiO2 01/22/17 06:00 96 24 119/70 (86) 96 Room Air 01/22/17 04:00 36.6 101 20 121/75 (90) 94 Room Air 01/22/17 04:00 Room Air 01/22/17 02:00 96 21 139/79 (99) 96 Room Air 01/22/17 00:00 Room Air 01/22/17 00:00 36.5 98 22 131/82 (98) 97 Room Air 01/21/17 22:00 103 13 89 01/21/17 21:02 105 17 139/83 (101) 100 01/21/17 21:00 98 18 97 01/21/17 20:01 97 17 143/87 (105) 96 01/21/17 20:00 Room Air 01/21/17 20:00 36.6 82 19 152/101 (118) 97 Room Air 01/21/17 20:00 91 20 99 01/21/17 19:01 93 19 157/101 (119) 88 01/21/17 19:00 93 22 98 01/21/17 18:01 92 15 154/79 (104) 100 01/21/17 18:00 92 19 98 01/21/17 17:01 97 19 137/64 (88) 96 01/21/17 17:00 107 16 76 01/21/17 16:01 91 20 137/79 (98) 100 01/21/17 16:00 87 19 100 01/21/17 15:30 Room Air 01/21/17 15:30 36.4 92 19 136/69 (91) 97 Room Air 01/21/17 15:01 91 22 139/69 (92) 98 01/21/17 15:00 94 20 100 01/21/17 14:00 93 17 130/58 (82) 92 Room Air 01/21/17 12:00 Room Air 01/21/17 12:00 36.5 89 22 113/61 (78) 91 Room Air 01/21/17 10:00 79 18 105/52 (69) 92 Room Air 01/21/17 08:00 36.4 80 16 84/39 (54) 100 Room Air 81/48 (59) 01/21/17 08:00 Room Air Laboratory Results: Last 24 Hours Test 01/21/17 11:45 01/21/17 13:21 01/21/17 15:25 01/21/17 19:44 Bedside Glucose 139 mg/dl 151 mg/dl 157 mg/dl Sodium Level 138 mmol/L Potassium Level 4.4 mmol/L Chloride Level 106 mmol/L Carbon Dioxide Level 24 mmol/L Anion Gap 8.0 mmol/L Blood Urea Nitrogen 32 mg/dl Creatinine 2.40 mg/dl Est Creatinine Clear Calc Drug Dose 29.7 ml/min Estimated GFR () 24.8 Estimated GFR (Non- 21.4 BUN/Creatinine Ratio 13.4 Random Glucose 157 mg/dl Calcium Level 7.9 mg/dl Test 01/22/17 05:20 White Blood Count 8.84 K/uL Red Blood Count 3.11 M/uL Hemoglobin 9.0 g/dL Hematocrit 28.0 % Mean Corpuscular Volume 90.0 fL Mean Corpuscular Hemoglobin 28.9 pg Mean Corpuscular Hemoglobin Concent 32.1 g/dl RDW Standard Deviation 41.2 fL RDW Coefficient of Variation 12.6 % Platelet Count 235 K/uL Mean Platelet Volume 10.2 fL Sodium Level 142 mmol/L Potassium Level 4.8 mmol/L Chloride Level 110 mmol/L Carbon Dioxide Level 26 mmol/L Anion Gap 6.0 mmol/L Blood Urea Nitrogen 24 mg/dl Creatinine 1.90 mg/dl Est Creatinine Clear Calc Drug Dose 37.5 ml/min Estimated GFR () 32.9 Estimated GFR (Non- 28.4 BUN/Creatinine Ratio 12.6 Random Glucose 177 mg/dl Calcium Level 8.2 mg/dl Phosphorus Level 2.5 mg/dl Magnesium Level 1.5 mg/dl
--- NOTE | 2017-01-22 07:21 | DIAGNOSTIC IMAGING REPORT ---
CHEST ONE VIEW PORTABLE HISTORY: 61 years-old Female follow-up resection status post left upper lobectomy COMPARISON: Chest radiograph 01/21/2017, PET CT 11/11/2016 TECHNIQUE: Portable upright AP view of the chest FINDINGS: Cardiac silhouette is again enlarged. There is leftward shift of the heart and mediastinal structures from volume loss secondary to left upper lobectomy. There is no pneumothorax, pleural effusion or focal airspace consolidation. Mild left hemidiaphragmatic elevation is seen. Single lead left pectoral pacer/defibrillator is unchanged with lead intact. There is atherosclerosis of the aorta. Patient obesity is noted. The bones appear grossly intact. IMPRESSION: 1. No acute cardiopulmonary process. 2. Evidence of prior left upper lobectomy. The above report was generated using voice recognition software. It may contain grammatical, syntax or spelling errors. Electronically signed by: Fritz Lynn M.D. 01/22/2017 7:20 AM Dictated Date/Time: 01/22/2017 7:17 AM
[2017-01-22] MEDS ORDERED: MAGNESIUM SULFATE 1GM / D5W 1 GM in PREMIXED IN D5W 100 ML IV ONE (07:30)
[2017-01-22] MEDS: MAGNESIUM OXIDE 400 MG TAB PO SCH ×3 (08:49→14:26)
[2017-01-22] MEDS: FLUTICASONE/SALMETEROL 250/50 (ADVAIR) 14 PUFF/1 INHALER INH SCH ×2 (08:51→20:37)
[2017-01-22] MEDS: ASPIRIN 81 MG CHEW PO SCH (08:52)
[2017-01-22] MEDS: DOCUSATE SODIUM 100 MG/10 ML UDC PO SCH ×2 (08:52→20:37)
[2017-01-22] MEDS: CLOPIDOGREL BISULFATE 75 MG TAB PO SCH (08:53)
[2017-01-22] MEDS: LEVETIRACETAM 500 MG TAB PO SCH ×2 (08:53→20:37)
[2017-01-22] MEDS: SENNA 8.6 MG TAB PO SCH (08:53)
[2017-01-22] MEDS: CARVEDILOL 12.5 MG TAB PO SCH (08:53)
[2017-01-22] MEDS: LANSOPRAZOLE SOLUTAB 30 MG PO SCH (08:53)
[2017-01-22] MEDS: ATORVASTATIN 10 MG TAB PO SCH (08:53)
[2017-01-22] MEDS: LISINOPRIL 10 MG TAB PO SCH (08:54)
[2017-01-22] MEDS: FENOFIBRATE 145 MG TAB PO SCH (08:54)
[2017-01-22] MEDS: ENOXAPARIN 40 MG/0.4 ML SYR SQ SCH (08:54)
[2017-01-22] MEDS ORDERED: DOCUSATE SODIUM 100 MG CAP PO SCH (09:00)
[2017-01-22] MEDS ORDERED: INSULIN GLARGINE SOLOSTAR 100 UNITS/ML 3 ML PEN SC SCH (09:00)
[2017-01-22] MEDS ORDERED: SENNA 8.6 MG TAB PO SCH (09:00)
[2017-01-22] MEDS: INSULIN ASPART 100 UNITS/ML 3 ML PEN SC SCH ×4 (09:05→21:00)
--- NOTE | 2017-01-22 09:34 | Pharmacy Progress Note ---
Glycemic Control Progress Note Date of Service Jan 22, 2017. Scope Glycemic Pharmacist consulted for glycemic control to write orders per [facility] inpatient glycemic control protocol. Objective Accuchecks BSG (last 24hrs): Test 01/21/17 11:45 01/21/17 13:21 01/21/17 15:25 01/21/17 19:44 Bedside Glucose 139 mg/dl (70-90) 151 mg/dl (70-90) 157 mg/dl (70-90) Random Glucose 157 mg/dl (70-99) Test 01/22/17 05:20 01/22/17 06:51 Random Glucose 177 mg/dl (70-99) Bedside Glucose 213 mg/dl (70-90) HbA1c: Test 01/21/17 05:31 Hemoglobin A1c 8.2 % (4.5-5.6) H Recent Pertinent Medications The patient is currently receiving: * Basal insulin: * Lantus 40 units every 24 hours (dosed at bedtime) * Bolus Insulin: * NovoLog SQ ACHS - Goal Range: Low 140 mg/dL - High 180 mg/dL - Correction Factor: 15 mg/dL/unit - Carb ratio of 1 unit per 5 grams CHO consumed Outpatient Anti-Diabetic Meds Tresiba (basal insulin) 160 units SQ q HS Humalog (bolus insulin) SSI 0-12 units SQ Assessment & Plan ASSESSMENT: * See progress note from 01/20/17 for more background info, in short: * Pt receiving SQ basal bolus insulin regimen for hyperglycemia secondary to baseline DM (outpatient regimen on hold), stress, and recent surgery * Patient is currently receiving an average of 60 units of insulin per day * 40 units of basal insulin * 20 units of prandial/correctional insulin * BSGs ranging 102-158 mg/dl over the past 24hrs * Changes needed to insulin regimen: * AM Fasting BSG = 177 mg/dl. This is just above goal range for this patient based on inpatient targets and co-morbidities. - Basal insulin needs to be increased - likely will see trend upward in BSGs since Ms Guadalupe received a reduced dose of insulin on 01/21 * Post-prandial BSGs are in range, but increased throughout the day - Tighten CF/CR - Lower goal range since Ms Guadalupe will be downgraded from ICU status * Total daily dose ~60 units. - Increase both basal and bolus insulin doses as I expect BSGs to continue to climb with improved PO intake and reduced doses given on 01/21 PLAN FOR INPATIENT GLYCEMIC CONTROL: * Basal insulin: * Lantus 20 units SQ x1 dose this AM, 40 units SQ x1 this PM, then 60 units SQ q PM on 01/23 *this is a therapeutic interchange for Tresiba (home basal insulin) * Bolus Insulin: * NovoLog SQ ACHS - Goal Range: Low 110 mg/dL - High 140 mg/dL - Correction Factor: 12 mg/dL/unit - Carb ratio of 1 unit per 4 grams CHO consumed * A1c - added to discharge instructions RECOMMENDATIONS FOR DISCHARGE: * Ms. Guadalupe's A1c is 8.2% which may be slightly elevated for her age/ comorbidities, however I hesitate to make many changes to her home regimen at this time. I would recommend continuing home regimen at discharge with follow up with outpatient provider for optimal dose titration. * Please note that the plan above was derived based on current level of insulin resistance and hospital stress. These recommendations are appropriate for inpatient admission only. Plan of care upon discharge will need to be reassessed to avoid potential outpatient hypo/hyperglycemia. Thank you.
--- NOTE | 2017-01-22 12:59 | SURGERY PROGRESS NOTE ---
DATE: 01/22/2017 Sangeetha Guadalupe is 2 days status post a robotic video-assisted thoracoscopic surgery with a small thoracotomy. Pathology is still pending. She remains on room air. She has been quite stable. I was a bit worried about her urine output yesterday, but this picked up quite nicely. She made over 1200 mL and how now made 1650 over the course of the day. In addition, I was concerned about her creatinine. She presented at 1.8 and it went up to 2.4 and is now down to 1.9. She is making good urine. She is on room air. She is ambulating. Her chest tube has drained a bit more than I would like. Put out 425 mL yesterday. This is serous. Put out 130 mL so far today. I really do not see an air leak. On auscultation she has no wheezing but she has some rhonchi. She is able to use the incentive spirometer quite well. She has good cough. Pain control has been excellent. She has a regular rate and rhythm of her heart. She does have her sequential compression devices in place. She has been ambulating. At this point I am quite happy with her. I am going to transfer her to the third surgical floor. I am quite happy with her urine output. The pathology is not back as of yet. ASSESSMENT AND PLAN: Postoperative day 2 status post robotic video-assisted thoracoscopic surgery and small thoracotomy. We will hopefully discharge her tomorrow.
[2017-01-22] MEDS ORDERED: NURSING VERBAL MED ORDER ONE (21:30)
[2017-01-22] MEDS: INSULIN GLARGINE SOLOSTAR 100 UNITS/ML 3 ML PEN SC SCH (21:34)
[2017-01-22] MEDS ORDERED: ZOLPIDEM TARTRATE 10 MG TAB PO SCH (22:00)
[2017-01-23 03:22] VITALS: BP 118/74
[2017-01-23] MEDS: ACETAMINOPHEN SOLN 650MG/20.3 ML UDC PO SCH ×2 (04:14→10:00)
[2017-01-23 06:37] VITALS: PULSE 103; O2SAT 96
[2017-01-23 07:28] VITALS: BP 128/70; PULSE 76; TEMP 36.7; O2SAT 95
--- NOTE | 2017-01-23 07:59 | DIAGNOSTIC IMAGING REPORT ---
CHEST ONE VIEW PORTABLE CLINICAL HISTORY: Lobectomy COMPARISON STUDY: Chest radiograph January 22, 2017. FINDINGS: A left subclavian pacer/AICD is in place. A left chest tube is in place. There is no definite left pneumothorax although there is an unusual left perihilar opacity. Right lung is clear. Cardiomegaly is unchanged. There is no evidence of pulmonary edema. Left hemithorax volume loss is noted. IMPRESSION: Left chest tube in place. No definite pneumothorax although unusual left perihilar contour. A small loculated pneumothorax would be difficult to exclude. Electronically signed by: Sb Cunningham M.D. 01/23/2017 7:58 AM Dictated Date/Time: 01/23/2017 7:55 AM
[2017-01-23] MEDS: INSULIN ASPART 100 UNITS/ML 3 ML PEN SC SCH (08:00)
[2017-01-23] MEDS: CHECK FENTANYL PATCH PLACEMENT SCH ×2 (08:19)
[2017-01-23] MEDS: FLUTICASONE/SALMETEROL 250/50 (ADVAIR) 14 PUFF/1 INHALER INH SCH (08:21)
[2017-01-23] MEDS: LEVETIRACETAM 500 MG TAB PO SCH (08:22)
[2017-01-23] MEDS: LISINOPRIL 10 MG TAB PO SCH (08:23)
[2017-01-23] MEDS: ASPIRIN 81 MG CHEW PO SCH (08:23)
[2017-01-23] MEDS: DOCUSATE SODIUM 100 MG/10 ML UDC PO SCH (08:23)
[2017-01-23] MEDS: CLOPIDOGREL BISULFATE 75 MG TAB PO SCH (08:24)
[2017-01-23] MEDS: FENOFIBRATE 145 MG TAB PO SCH (08:24)
[2017-01-23] MEDS: ATORVASTATIN 10 MG TAB PO SCH (08:24)
[2017-01-23] MEDS: CARVEDILOL 12.5 MG TAB PO SCH (08:24)
[2017-01-23] MEDS: SENNA 8.6 MG TAB PO SCH (08:24)
[2017-01-23] MEDS: ENOXAPARIN 40 MG/0.4 ML SYR SQ SCH (08:25)
[2017-01-23] MEDS: LANSOPRAZOLE SOLUTAB 30 MG PO SCH (08:25)
--- NOTE | 2017-01-23 09:56 | Discharge Instructions ---
Discharge Instructions Date of Service Jan 23, 2017. Admission Reason for Admission: Left Lung Mass, Iddm Discharge Discharge Diagnosis / Problem: Lung Cancer Discharge Goals Goal(s): Decrease discomfort (Use your percocets for pain.) Activity Recommendations Activity Limitations: as noted below Lifting Limitations: gradually increase as tolerated Exercise/Sports Limitations: gradually increase as tolerated May Resume Sexual Activity: when tolerated Shower/Bathe: may shower/bathe in 3 days Driving or Machine Use: Wait until I see you next week. . Instructions / Follow-Up Instructions / Follow-Up My office will call you. Current Hospital Diet Patient's current hospital diet: Diabetes Type 2 Diet Discharge Diet Recommended Diet: Diabetes Type 2 Diet Procedures Procedures Performed: Robotic Assisted Left Thoracsocpy with Left Upper Lobectomy and Mediastinal Lymphadenectomy, Open Thoracotomy Pending Studies Studies pending at discharge: yes List of pending studies: Pathology Laboratory Results Hemoglobin A1c Test 01/21/17 05:31 Range/Units Estimated Average Glucose 189 mg/dl Hemoglobin A1c 8.2 H 4.5-5.6 % Medical Emergencies . Who to Call and When: Medical Emergencies: If at any time you feel your situation is an emergency, please call 911 immediately. . Non-Emergent Contact Non-Emergency issues call your: Primary Care Provider . "Provider Documentation" section prepared by Brian Smith. . VTE Core Measure Inpt VTE Proph given/why not?: Enoxaparin (Lovenox)SQ, SCD's
[2017-01-23 10:44] VITALS: BP 128/70; PULSE 76; TEMP 36.7; O2SAT 95
--- NOTE | 2017-01-23 10:50 | DIAGNOSTIC IMAGING REPORT ---
CHEST ONE VIEW PORTABLE CLINICAL HISTORY: s/p chest tube removal COMPARISON STUDY: Chest radiograph January 23, 2017 at 7:06 AM. FINDINGS: There is a suspected tiny left apical pneumothorax following chest tube removal. Left hemithorax volume loss is expected following resection. A left subclavian pacer/AICD is in place. Moderate cardiomegaly is noted without evidence of pulmonary edema. IMPRESSION: Suspected tiny left apical pneumothorax following chest tube removal. Electronically signed by: Sb Cunningham M.D. 01/23/2017 10:49 AM Dictated Date/Time: 01/23/2017 10:48 AM
--- NOTE | 2017-01-23 11:15 | DISCHARGE SUMMARY ---
DATE OF DISCHARGE: 01/23/2017. DISCHARGE DIAGNOSES: Nonsmall cell lung carcinoma, left upper lobe. HOSPITAL COURSE: Sangeetha Guadalupe is a 61-year-old female with multiple medical problems including a depressed LV function, obesity, chronic obstructive pulmonary disease, tobacco abuse, among other things including renal insufficiency who was found to have hypermetabolic mass in her left upper lobe. In fact, I suspect that the patient has 2 cancers. There is a ground-glass opacity in the apex; however, there was a mass that was hypermetabolic closer to the hilum. I elected to proceed with a robotic left upper lobectomy. On 01/20/2017 the patient was brought to the operating room and underwent robotic lobectomy. The patient did not have fissures and was an extremely difficult case technically. I divided her superior pulmonary vein and did much of the hilar dissection, however as we were failing to progress fast enough I then opened the chest and we completed the case. Frozen section showed this indeed is a nonsmall cell lung carcinoma near the hilum. It is probably a squamous cell. We will wait for permanent sections to see what the other mass is. Our margins were negative. We did a lymph node dissection. She tolerated it well and she was extubated in the room. I watched her in the ICU overnight and she had issues with urine. Her urine output was low however we walked a fine line in a woman who has a propensity for congestive heart failure who also was kept dry for her lung surgery. At any rate creatinine jumped from 1.8 to 2.4, but she started making a good deal of urine with some fluid administration and this looked much better. Her urine cleared. I removed her Thompson catheter and had her ambulating in the hallway on postop day 2. She was weaned to room air quite quickly. I removed her chest tube on postop day #3, her chest x-ray looked quite good. The patient was discharged on postop day #3. I will see her back in the office to go over final pathology results. Her incisions were clean. She was moving air well. As I stated pulse oximetry was 99% on room air. I was quite happy with her clinical course.
[2017-01-23] MEDS ORDERED: INSULIN GLARGINE SOLOSTAR 100 UNITS/ML 3 ML PEN SC SCH (21:00)
[2017-01-24] MEDS ORDERED: FENTANYL PATCH REMOVE & WASTE SCH (08:15)
== END 2017-01-23 12:10 | disposition home health service (06) | DRG 164 ==
LOC: C.ACU 05:23 → C.MSICU 15:12 → ENRESERV 16:00 → CANRESERV 01-22 08:05 → ENRESERV 01-22 08:05 → CANBEDREQ 01-22 08:30 → ENRESERV 01-22 10:33 → C.MSN 01-22 12:12
PROVIDERS: ADMIT Surgery; ATTEND Surgery
PROC: 07B74ZX Excision of Thorax Lymphatic, Percutaneous Endoscopic Approach, Diagnostic (ICD-10-PCS; principal; 2017-01-20 07:30)
PROC: 0W9B00Z Drainage of Left Pleural Cavity with Drainage Device, Open Approach (ICD-10-PCS; principal; 2017-01-20 07:30)
PROC: 0BTG0ZZ Resection of Left Upper Lung Lobe, Open Approach (ICD-10-PCS; principal; 2017-01-20 07:30)
PROC: 8E0W4CZ Robotic Assisted Procedure of Trunk Region, Percutaneous Endoscopic Approach (ICD-10-PCS; principal; 2017-01-20 07:30)
DX: C34.12 Malignant neoplasm of upper lobe, left bronchus or lung (principal); N17.9 Acute kidney failure, unspecified; Z53.32 Thoracoscopic surgical procedure converted to open procedure; J98.4 Other disorders of lung; R91.8 Other nonspecific abnormal finding of lung field; I25.5 Ischemic cardiomyopathy; J45.909 Unspecified asthma, uncomplicated; I25.10 Atherosclerotic heart disease of native coronary artery without angina pectoris; J44.9 Chronic obstructive pulmonary disease, unspecified; E11.9 Type 2 diabetes mellitus without complications; I11.9 Hypertensive heart disease without heart failure; I25.2 Old myocardial infarction; E78.5 Hyperlipidemia, unspecified; F41.9 Anxiety disorder, unspecified; R56.9 Unspecified convulsions; F17.200 Nicotine dependence, unspecified, uncomplicated; E66.9 Obesity, unspecified; Z51.81 Encounter for therapeutic drug level monitoring; Z79.899 Other long term (current) drug therapy; Z79.82 Long term (current) use of aspirin; Z85.72 Personal history of non-Hodgkin lymphomas; Z92.21 Personal history of antineoplastic chemotherapy; Z68.39 Body mass index [BMI] 39.0-39.9, adult

== ENCOUNTER → 2017-02-04 | Outpatient (CLI) | payer OTHER ==
--- NOTE | 2017-02-04 10:48 | DIAGNOSTIC IMAGING REPORT ---
TWO VIEW CHEST CLINICAL HISTORY: Status post left lobe resection. FINDINGS: PA and lateral chest radiographs are compared to study dated 01/23/2017 and correlated with chest CT dated 11/11/2016. The PA view is significant degraded by patient rotation. A single lead cardiac AICD is unchanged in position and largely obscures the left lower chest. The cardiomediastinal silhouette is unremarkable. There is atherosclerotic calcification of the thoracic aorta. Mild emphysema and chronic interstitial thickening are similar to previous. The right lung appears clear. There is volume loss consistent with left upper lobe resection. Pleural fluid is seen at the left lung base. There is no pneumothorax. The skeletal structures are osteopenic. Degenerative change is present throughout the thoracic spine. Cholecystectomy clips are noted. IMPRESSION: 1. Emphysema with postoperative change from left upper lobe resection. No pneumothorax is seen. 2. A small volume of pleural fluid is seen at the left lung base, likely on a postoperative basis. The lung are otherwise clear. 3. A cardiac AICD is noted. There is no radiographic evidence of congestive failure. Electronically signed by: Ricky Parekh M.D. 02/04/2017 10:47 AM Dictated Date/Time: 02/04/2017 10:45 AM
== END | disposition home or self-care (01) ==
LOC: C.RAD1850 10:35
PROVIDERS: ATTEND Surgery
DX: R91.1 Solitary pulmonary nodule (principal)